=== PATIENT | male | born 1955 | race Caucasian/White ===

== ENCOUNTER → 2021-02-08 13:09 | Outpatient (BNVA) | payer OTHER, SELFPAY | PROVIDERS: PCP Internal Medicine; Visit Provider Urology ==

== ENCOUNTER → 2022-04-04 13:05 | Outpatient (BNVA) | payer MEDICARE, SELFPAY | PROVIDERS: PCP Internal Medicine; Visit Provider Urology | DX: N40.0 Benign prostatic hyperplasia without lower urinary tract symptoms (principal); R97.20 Elevated prostate specific antigen [PSA] | CPT/HCPCS: 51798; 99212 ==

== ENCOUNTER → 2022-08-06 12:46 | Outpatient (BNVA) | payer MEDICARE, SELFPAY | PROVIDERS: PCP Internal Medicine; Visit Provider Urology | DX: N40.0 Benign prostatic hyperplasia without lower urinary tract symptoms (principal); R97.20 Elevated prostate specific antigen [PSA] | CPT/HCPCS: 99212 ==

== ENCOUNTER → 2023-02-26 08:46 | Outpatient (BNVA) | payer MEDICARE, SELFPAY | PROVIDERS: Visit Provider Urology | DX: N40.0 Benign prostatic hyperplasia without lower urinary tract symptoms (principal); R97.20 Elevated prostate specific antigen [PSA]; R35.1 Nocturia; R39.12 Poor urinary stream; R35.0 Frequency of micturition | CPT/HCPCS: 51798; 99212 ==

== ENCOUNTER 2023-10-29 10:50 | Outpatient (AMB) | payer MEDICARE, SELFPAY ==
--- NOTE | 2023-10-29 10:54 | A.OFFVIS_ITS ---
Intake Intake Visit Reasons: 6M PVR/PSA(set)(Confirmed) Intake Note: Patient presents today for a follow-up Meds- Finasteride, Allergies to Antibiotic- No Known Allergies Blood Thinner- None Post Void Residual: 33ml Hot [place]ale Man Required: No Allergies No Known Allergies Allergy (Verified 10/29/23 11:01) Medication List - Last Reconciled 10/29/23 by Antwan Elmore MD allopurinol 100 mg PO DAILY finasteride 5 mg PO DAILY 90 days lisinopril 20 mg PO DAILY propranolol ER 120 mg PO DAILY rosuvastatin 20 mg PO BEDTIME HPI HPI Comments History of Present Illness Details Rosendo Glass is a very pleasant male. He is a patient of Dr. Henderson. He is seen for the following urologic conditions. - BPH - elevated PSA Current PSA 1.6 Minimal PVR Discussed moving to finasteride every other day He is happy with his current symptom control 12 month follow-up Prostate/Bladder: Significant PSA drop with finasteride LAURA 2+ prostate Benign prostatic hyperplasia (BPH) was diagnosed years ago. Current symptoms include nocturia, weak flow, urinary frequency. Severity of the symptoms that is mild. Aggravating factors include alcohol, caffeine intake. Current medication(s) include finasteride. Recent labs included a PSA (prostate-specific antigen) November 2012 3.1, July 2014 3.2, January 2015 2.7, November 2015 4.4 free PSA 27%. December 2016 3.3, 07/17 3.1, 08/17 4.0, 08/18 4.6, 02/17 1.4 (on finasteride), 02/18 3.5, 03/21 4.5, 07/22 2.5, 09/23 1.6 [facility] Medical History Renal sclerosis Hyperlipidemia HTN (hypertension) Elevated PSA Weak urinary stream BPH (benign prostatic hyperplasia) Surgical History History of surgery Social History Patient Tobacco Use Status: Former Tobacco user Review of Systems Const Denies chills and Denies fever(s) Card Reports no additional complaints and Denies syncope Resp Denies cough GI Denies abdominal pain and Denies heartburn Reports as per HPI and Denies change in libido Neuro Denies syncope Psych Denies change in libido Endo Denies change in libido Physical Exam Const General: cooperative, healthy appearing, comfortable and no acute distress Orientation/consciousness: patient oriented x3 HEENT Face and sinus: Yes normal facial exam Mouth: moist mucous membranes Neck Neck: Yes normal visual inspection, Yes full ROM and Yes trachea midline Chest Chest palpation & inspection: normal inspection of the chest Resp Effort & Inspection: normal respiratory effort, able to speak in complete sentences and no respiratory distress GI Inspection: Yes normal to inspection Back/Spine/Pelvis Cervical Spine: normal cervical lordosis Thoracic/Lumbar Spine: thoracic and lumbar spine normal to inspection Skin General skin exam: no rashes or lesions noted Neuro General: patient oriented x3, gait normal, tone normal and moves all extremities Extrem General: Yes normal to inspection and Yes capillary refill normal Office Procedures Post Void Residual Post Residual Void Post Void Residual (PVR): [id number] Void Residual by ultrasound Assessment & Plan Assessment & Plan (1) BPH (benign prostatic hyperplasia): Code(s): N40.0 - Benign prostatic hyperplasia without lower urinary tract symptoms (2) Elevated PSA: Code(s): R97.20 - Elevated prostate specific antigen [PSA] Plan Twelve month follow-up PSA Orders: Orders AMB Post Void Residual by ultrasound Today R33.9 - Retention of urine, unspecified Prostate Specific Antigen 364 Days N40.0 - Benign prostatic hyperplasia without lower urinary tract symptoms Patient Instructions: Imaging studies, laboratory and physical exam results were discussed and reviewed in detail. No major barriers to patient understanding were identified. An opportunity to ask questions regarding the treatment plan was provided. All questions were answered. The patient expressed understanding and agreement with the above treatment plan. The patient is aware they should contact our office by phone for worsening of their current condition or the appearance of new urologic symptoms. Compliance is encouraged with any medications and followup testing that is ordered. It is a privilege to participate in the urologic care of your patient. If you have any questions or concerns regarding treatment for the above conditions, or other urologic issues, please do not hesitate to contact me. The office telephone contact is [phone]. This note is constructed using voice recognition software. While every effort has been made to ensure accuracy brine room laborer errors may have been included. Yours sincerely, Dr Antwan Elmore MD, [facility] - Urology Providers of Expert, Compassionate Care for the Genitourinary System Coding Level of Care Code Est Pt Level 3 (21098) Diagnoses BPH (benign prostatic hyperplasia) N40.0 Elevated PSA R97.20 CPT Codes Post Residual Void - PVR CPT Code: 41837-Ierz Void Residual by ultrasound ([id number])
== END 2023-10-29 11:21 | disposition home or self-care (01) ==
PROVIDERS: PCP Internal Medicine; Visit Provider Urology
DX: N40.0 Benign prostatic hyperplasia without lower urinary tract symptoms (principal); R97.20 Elevated prostate specific antigen [PSA]
CPT/HCPCS: 99213

== ENCOUNTER → 2023-10-29 10:50 | Outpatient (BNVA) | payer MEDICARE, SELFPAY | PROVIDERS: PCP Internal Medicine; Visit Provider Urology | DX: N40.0 Benign prostatic hyperplasia without lower urinary tract symptoms (principal); R97.20 Elevated prostate specific antigen [PSA] | CPT/HCPCS: 51798; 99212 ==

== ENCOUNTER → 2024-10-28 08:38 | Outpatient (BNVA) | payer MEDICARE, SELFPAY | PROVIDERS: PCP Internal Medicine; Visit Provider Urology | DX: R97.20 Elevated prostate specific antigen [PSA] (principal); N40.0 Benign prostatic hyperplasia without lower urinary tract symptoms | CPT/HCPCS: 51798; 99212 ==

== ENCOUNTER 2024-10-28 08:40 | Outpatient (AMB) | payer MEDICARE, SELFPAY ==
--- NOTE | 2024-10-28 08:40 | MHC.OFFVIS ---
Intake Visit Reasons: 1Y PSA/PVR(pt will bring results) Intake Note: Pt presents to the office today for a 1 year follow up PSA/PVR PVR:30ml Urology meds:Finasteride Allergies:None Allergies No Known Allergies Allergy (Verified 10/28/24 08:40) HPI Comments Details: Rosendo Glass is a very pleasant male. He is a patient of Dr. Henderson. He is seen for the following urologic conditions. - BPH - elevated PSA Yearly follow-up Has PSA result from primary care 7.4 Minimal PVR Finasteride every other day LAURA large prostate no defined nodule, some degree of firmness right base Repeat PSA in 2 months Discussed prostate biopsy Urinary Symptoms Review - Lower urinary tract symptoms managed with finasteride every other day. - History of stable PSA level at 1.6, recently noted elevation to 7.7. - Factors potentially affecting PSA levels include recent sexual activity, bike riding, and coffee consumption. Prostate/Bladder: Significant PSA drop with finasteride LAURA 2+ prostate Benign prostatic hyperplasia (BPH) was diagnosed years ago. Current symptoms include nocturia, weak flow, urinary frequency. Severity of the symptoms that is mild. Aggravating factors include alcohol, caffeine intake. Current medication(s) include finasteride. Recent labs included a PSA (prostate-specific antigen) November 2012 3.1, July 2014 3.2, January 2015 2.7, November 2015 4.4 free PSA 27%. December 2016 3.3, 07/17 3.1, 08/17 4.0, 08/18 4.6, 02/17 1.4 (on finasteride), 02/18 3.5, 03/21 4.5, 07/22 2.5, 09/23 1.6 [facility] Medical History Renal sclerosis Hyperlipidemia HTN (hypertension) Elevated PSA Weak urinary stream BPH (benign prostatic hyperplasia) Surgical History History of surgery Social History Patient Tobacco Use Status: Former Tobacco user Review of Systems Const Denies chills and Denies fever(s) Card Reports no additional complaints and Denies syncope Resp Denies cough GI Denies abdominal pain and Denies heartburn Reports as per HPI and Denies change in libido Neuro Denies syncope Psych Denies change in libido Endo Denies change in libido Physical Exam Const General: cooperative, healthy appearing, comfortable and no acute distress Orientation/consciousness: patient oriented x3 HEENT Face and sinus: Yes normal facial exam Mouth: moist mucous membranes Neck Neck: Yes normal visual inspection, Yes full ROM and Yes trachea midline Chest Chest palpation & inspection: normal inspection of the chest Resp Effort & Inspection: normal respiratory effort, able to speak in complete sentences and no respiratory distress GI Inspection: Yes normal to inspection Rectal Exam - Male: Yes normal sphincter tone and Yes prostate normal Male General Exam: Yes normal external exam Penis: normal penis and circumcised Meatus: meatus normal Scrotum: scrotum normal Testes: Testes normal Back/Spine/Pelvis Cervical Spine: normal cervical lordosis Thoracic/Lumbar Spine: thoracic and lumbar spine normal to inspection Skin General skin exam: no rashes or lesions noted Neuro General: patient oriented x3, gait normal, tone normal and moves all extremities Extrem General: Yes normal to inspection and Yes capillary refill normal Office Procedures Post Void Residual Post Residual Void Post Void Residual (PVR): 30 [id number] Void Residual by ultrasound Assessment & Plan Assessment & Plan (1) BPH (benign prostatic hyperplasia): Code(s): N40.0 - Benign prostatic hyperplasia without lower urinary tract symptoms Category: Medical (2) Elevated PSA: Code(s): R97.20 - Elevated prostate specific antigen [PSA] Category: Medical Plan Plan Repeat the PSA test in two months. Consider MRI of the prostate if PSA remains elevated, contingent on insurance approval. Monitor benign prostatic hyperplasia symptoms continued on finasteride every other day. Discussion Notes I explained the potential causes of the PSA elevation, highlighting factors such as recent sexual activity, exercise, and potential prostatitis. I advised repeating the PSA test in two months to confirm the findings. Additionally, I discussed the possibility of performing an MRI or biopsy depending on the outcome of the subsequent PSA levels and insurance requirements. The patient understands and agrees with the proposed plan. Patient Instructions - Continue taking finasteride every other day as prescribed. - Avoid activities that can potentially elevate PSA levels prior to the next test. - Schedule a repeat PSA test in two months. - Follow up for review of the PSA results after retesting. - Report any new or worsening symptoms immediately. Orders: Orders AMB Post Void Residual by ultrasound Today N40.0 - Benign prostatic hyperplasia without lower urinary tract symptoms Patient Instructions: This note is constructed using voice recognition software. While every effort has been made to ensure accuracy cash applications manager errors may have been included. Imaging studies, laboratory and physical exam results were discussed and reviewed in detail. No major barriers to patient understanding were identified. An opportunity to ask questions regarding the treatment plan was provided. All questions were answered. The patient expressed understanding and agreement with the above treatment plan. The patient is aware they should contact our office by phone for worsening of their current condition or the appearance of new urologic symptoms. Compliance is encouraged with any medications and followup testing that is ordered. It is a privilege to participate in the urologic care of your patient. If you have any questions or concerns regarding treatment for the above conditions, or other urologic issues, please do not hesitate to contact me. The office telephone contact is [phone]. Sincerely, Dr Antwan Elmore MD, [facility] - Urology Compassionate Specialist Care for the Genitourinary System Coding Level of Care Code Est Pt Level 4 (54153) Diagnoses BPH (benign prostatic hyperplasia) N40.0 Elevated PSA R97.20 CPT Codes Post Residual Void - PVR CPT Code: 18391-Qgql Void Residual by ultrasound ([id number])
--- OUTSIDE RECORDS SUMMARY | 2024-10-28 08:55 | XMS_ITS ---
Author Organization [facility] Address [address] [place] [address] Care Team Providers Care Dredging Inspector Name Role Phone HENDERSONINESSA KHAN Primary Care Provider Rajani Varma Unavailable [phone] ALLERGIES No Known Allergies REASON FOR VISIT Pt here for routine follow up, pt states he has no concerns. MEDICATIONS Medication SIG (Take, Route, Frequency, Duration) Notes Start Date End Date Status Lisinopril 20 MG 1 tablet Orally Once a day for 90 days Active Fish Oil 1000 MG 1 capsule Orally Onc e a day for 30 day(s) Active Aspir-81 81 MG 1 tablet Orally Once a day for 30 day(s) Active Finasteride 5 MG 1 tablet Orally ever y other day Active Allopurinol 100 MG TAKE 1 TABLET DAILY for 90 Active Propranolol HCl ER 120 MG TAKE 1 CAPSULE ONCE DAILY for 90 Active Rosuvastatin Calcium 20 MG TAKE 1 TABLET ONCE DAILY for 90 Active SOCIAL HISTORY Tobacco Use: Social History Observation Description Date Details (start date - stop date) Current Smoker NA - NA Sex Assigned At : Social History Observation Description Sex Assigned At Unknown Tobacco Use/Smoking Question Answer Notes Are you a current smoker Section Notes: Weekend cigars. No alcohol. No rec drug use. VITAL SIGNS Blood pressure systolic 122 mm Hg 08/09/20 24 Blood pressure diastolic 76 mm Hg 024 Heart Rate 60 /min 08/09/2024 Height 69 in 08/09/2024 Weight 191 lbs 08/09/2024 BMI 28.2 kg/m2 08/09/2024 Oximetry 95 % 08/09/2024 Encounters Encounter Location Date Provider Diagnosis [address] [address] 08/09/2024Cherelle Varma Essential (primary) hypertension I10 ; Hyperlipidemia, unspecified hyperlipidemia type E78.5 ; Stage 3a chronic kidney disease (CKD) N18.31 ; Former smoker Z87.891 and Benign prostatic hyperplasia without lower urinary tract symptoms N40.0 ASSESSMENTS Encounter Date Diagnosis Assessment Notes Treatment Notes Treatment Clinical Notes Section Notes 08/09/2024 Essential (primary) hypertension (ICD-10 - I10) #Hypertension. Blood pressure currently well-controlled. Continue current regimen. Continue to work on healthy diet and regular exercise. #Hyperlipidemia. Has been well-controlled we will recheck labs. Follow up in 3 months, sooner with any concerns. Continue to work on healthy diet regular exercise. #CKD 3A. Labs stable will continue to monitor. Discussed avoidance of NSAIDs. Encouraged increased hydration. Recheck labs. #Former smoker. Low-dose CAT scan done in March 2024- normal. Will repeat yearly. Case discussed with collaborating physician William Henderson who reviewed the assessment and plan. Chart, medications, labs, vital signs reviewed. Dictation was accomplished with the use of [employer] voice recognition software, prone to medical misidentifications and grammatical errors. This is unintentional and the practitioner does try to identify and correct these, but some could still be present. Please do not hesitate to contact practitioner for clarification. All questions answered to patients satisfaction. Patient verbalized understanding of diagnosis and treatments explained. To call sooner prior to next visit it any questions/concerns arise. 08/09/2024 Hyperlipidemia, unspecified hyperlipidemia type (ICD-10 - E78.5) #Hypertension. Blood pressure currently well-controlled. Continue current regimen. Continue to work on healthy diet and regular exercise. #Hyperlipidemia. Has been well-controlled we will recheck labs. Follow up in 3 months, sooner with any concerns. Continue to work on healthy diet regular exercise. #CKD 3A. Labs stable will continue to monitor. Discussed avoidance of NSAIDs. Encouraged increased hydration. Recheck labs. #Former smoker. Low-dose CAT scan done in March 2024- normal. Will repeat yearly. Case discussed with collaborating physician William Henderson who reviewed the assessment and plan. Chart, medications, labs, vital signs reviewed. Dictation was accomplished with the use of [employer] voice recognition software, prone to medical misidentifications and grammatical errors. This is unintentional and the practitioner does try to identify and correct these, but some could still be present. Please do not hesitate to contact practitioner for clarification. All questions answered to patients satisfaction. Patient verbalized understanding of diagnosis and treatments explained. To call sooner prior to next visit it any questions/concerns arise. 08/09/2024 Stage 3a chronic kidney disease (CKD) (ICD-10 - N18.31) #Hypertension. Blood pressure currently well-controlled. Continue current regimen. Continue to work on healthy diet and regular exercise. #Hyperlipidemia. Has been well-controlled we will recheck labs. Follow up in 3 months, sooner with any concerns. Continue to work on healthy diet regular exercise. #CKD 3A. Labs stable will continue to monitor. Discussed avoidance of NSAIDs. Encouraged increased hydration. Recheck labs. #Former smoker. Low-dose CAT scan done in March 2024- normal. Will repeat yearly. Case discussed with collaborating physician William Henderson who reviewed the assessment and plan. Chart, medications, labs, vital signs reviewed. Dictation was accomplished with the use of [employer] voice recognition software, prone to medical misidentifications and grammatical errors. This is unintentional and the practitioner does try to identify and correct these, but some could still be present. Please do not hesitate to contact practitioner for clarification. All questions answered to patients satisfaction. Patient verbalized understanding of diagnosis and treatments explained. To call sooner prior to next visit it any questions/concerns arise. 08/09/2024 Former smoker (ICD-10 - Z87.891) #Hypertension. Blood pressure currently well-controlled. Continue current regimen. Continue to work on healthy diet and regular exercise. #Hyperlipidemia. Has been well-controlled we will recheck labs. Follow up in 3 months, sooner with any concerns. Continue to work on healthy diet regular exercise. #CKD 3A. Labs stable will continue to monitor. Discussed avoidance of NSAIDs. Encouraged increased hydration. Recheck labs. #Former smoker. Low-dose CAT scan done in March 2024- normal. Will repeat yearly. Case discussed with collaborating physician William Henderson who reviewed the assessment and plan. Chart, medications, labs, vital signs reviewed. Dictation was accomplished with the use of [employer] voice recognition software, prone to medical misidentifications and grammatical errors. This is unintentional and the practitioner does try to identify and correct these, but some could still be present. Please do not hesitate to contact practitioner for clarification. All questions answered to patients satisfaction. Patient verbalized understanding of diagnosis and treatments explained. To call sooner prior to next visit it any questions/concerns arise. 08/09/2024 Benign prostatic hyperplasia without lower urinary tract symptoms (ICD-10 - N40.0) #Hypertension. Blood pressure currently well-controlled. Continue current regimen. Continue to work on healthy diet and regular exercise. #Hyperlipidemia. Has been well-controlled we will recheck labs. Follow up in 3 months, sooner with any concerns. Continue to work on healthy diet regular exercise. #CKD 3A. Labs stable will continue to monitor. Discussed avoidance of NSAIDs. Encouraged increased hydration. Recheck labs. #Former smoker. Low-dose CAT scan done in March 2024- normal. Will repeat yearly. Case discussed with collaborating physician William Henderson who reviewed the assessment and plan. Chart, medications, labs, vital signs reviewed. Dictation was accomplished with the use of [employer] voice recognition software, prone to medical misidentifications and grammatical errors. This is unintentional and the practitioner does try to identify and correct these, but some could still be present. Please do not hesitate to contact practitioner for clarification. All questions answered to patients satisfaction. Patient verbalized understanding of diagnosis and treatments explained. To call sooner prior to next visit it any questions/concerns arise. PLAN OF TREATMENT Pending Test Test Name Order Date TSH 08/09/2024 LIPID PANEL, STANDARD 08/09/2024 COMPREHENSIVE METABOLIC PANEL 08/09/2024 CBC (INCLUDES DIFF/PLT) 08/09/2024 HEMOGLOBIN A1c 08/09/2024 PSA (FREE AND TOTAL) 08/09/2024 VITAMIN D,25-OH,TOTAL,IA 08/09/2024 Next Appt Details Follow Up: 3 Months, Reason: MM/labs Provider Name:Rajani Varma, 0 02/23/2025 11:00:00 AM, [address] [facility], [facility] [address], [place], [address], Progress Notes * DARCY LANGFORDDOB:1955 (68 yo M)Acc No.[id number]:08/09/2024 Progress Notes Patient:??DARCY LANGFORD Provider:??Rajani Varma PA-C :1955?Age:68 Y?Sex:Elías mendoza Date:08/09/2024 Address:[address] [place] [address], [place], [id number] Pcp:INESSA HENDERSON Subjective: * Chief Complaints: * ?1. Pt here for routine follow up, pt states he has no concerns.. * HPI: ?Constitutional:? Alexander is a 68-year-old male with past medical history significant for hypertension, hyperlipidemia and CKD 3 here today in follow-up. He did have his low dose screening chest CT which was normal in March. Discussed repeat yearly. Denies any chest pain or shortness of breath. Overall feeling well. No specific concerns today. He has been eating a fairly balanced diet. ?Has been following with urology and on finasteride with good improvement in BPH symptoms. * ROS:?All Other Systems:?Review of Systems (ROS)??All others negative except those mentioned in HPI.? * Medical History:??Hyperlipid emia, Hypertension. * Surgical History:??colonosco py 4 years . * Hospitalization/Major Diagno stic Procedure:??hypertension 1978. * Family History:??Father: dec eased.??Mother: , diagnosed with Unspecified essential hypertension.??1 brother(s) , 1 sister(s) . 1 son(s) , 1 daughter(s) . .?? Father of CHF at 95 years old Mom of CKD and CHF 90s. * Social History:?Tobacco Use:??Tobacco Use/Smoking??Are you a??current smoker.?Weekend cigars. No alcohol. No rec drug use. * Medications:??Taking Finaste ride 5 MG Tablet 1 tablet Orally every other day , Taking Aspir-81 81 MG Tablet Delayed Release 1 tablet Orally Once a day , Taking Fish Oil 1000 MG Capsule 1 capsule Orally Once a day , Taking Lisinopril 20 MG Tablet 1 tablet Orally Once a day , Taking Rosuvastatin Calcium 20 MG Tablet TAKE 1 TABLET ONCE DAILY , Taking Propranolol HCl ER 120 MG Capsule Extended Release 24 Hour TAKE 1 CAPSULE ONCE DAILY , Taking Allopurinol 100 MG Tablet TAKE 1 TABLET DAILY , Medication List reviewed and reconciled with the patient * Allergies:??N.K.D.A. Objective: * Vitals:??HR:60/min, BP:122/7 6mm Hg, Wt:191lbs, BMI:28.2Index, Ht: 69 in, Oxygen sat %:95%. * Physical Examination:?General: Well appearing, well nourished, age appropriate in no acute distress. Speaking in full, clear sentences. ?SKIN: Warm, dry intact. No rashes/lesions. ?HEENT: Normocephalic atraumatic. EOM intact. No nystagmus noted. PERRLA. ?LUNGS: Clear to auscultation bilaterally, no wheezes, rales or rhonchi ?CARDIAC: Regular rate and rhythm, no murmurs, rubs or gallops. ?Extremities: Warm and well perfused. No edema noted. ?Neuro: CN II-XI grossly intact. Speaking in full sentences. Hearing intact. Assessment: * Assessment: 1.??Essential (primary) hype rtension - I10 (Primary)??2.??Hyperlipidemia, unspecified hyperlipidemia type - E78.5??3.??Stage 3a chronic kidney disease (CKD) - N18.31??4.??Former smoker - Z87.891??5.??Benign prostatic hyperplasia without lower urinary tract symptoms - N40.0?? #Hypertension. Blood pressur e currently well-controlled. Continue current regimen. Continue to work on healthy diet and regular exercise. #Hyperlipidemia. Has been well-controlled we will recheck labs. Follow up in 3 months, sooner with any concerns. Continue to work on healthy diet regular exercise. #CKD 3A. Labs stable will continue to monitor. Discussed avoidance of NSAIDs. Encouraged increased hydration. Recheck labs. #Former smoker. Low-dose CAT scan done in March 2024- normal. Will repeat yearly. Case discussed with collaborating physician William Henderson who reviewed the assessment and plan. Chart, medications, labs, vital signs reviewed. Dictation was accomplished with the use of [employer] voice recognition software, prone to medical misidentifications and grammatical errors. This is unintentional and the practitioner does try to identify and correct these, but some could still be present. Please do not hesitate to contact practitioner for clarification. All questions answered to patients satisfaction. Patient verbalized understanding of diagnosis and treatments explained. To call sooner prior to next visit it any questions/concerns arise. Plan: * Treatment: 2.??Hyperlipidemia, unspecif ied hyperlipidemia type?LAB: TSH ?LAB: LIPID PANEL, STANDARD ?LAB: COMPREHENSIVE METABOLIC PANEL ?LAB: CBC (INCLUDES DIFF/PLT) ?LAB: HEMOGLOBIN A1c ?LAB: PSA (FREE AND TOTAL) ?LAB: VITAMIN D,25-OH,TOTAL,IA 3.??Stage 3a chronic kidney disease (CKD)?LAB: TSH ?LAB: LIPID PANEL, STANDARD ?LAB: COMPREHENSIVE METABOLIC PANEL ?LAB: CBC (INCLUDES DIFF/PLT) ?LAB: HEMOGLOBIN A1c ?LAB: PSA (FREE AND TOTAL) ?LAB: VITAMIN D,25-OH,TOTAL,IA 4.??Former smoker?LAB: TSH ?LAB: LIPID PANEL, STANDARD ?LAB: COMPREHENSIVE METABOLIC PANEL ?LAB: CBC (INCLUDES DIFF/PLT) ?LAB: HEMOGLOBIN A1c ?LAB: PSA (FREE AND TOTAL) ?LAB: VITAMIN D,25-OH,TOTAL,IA * Follow Up:??3 Months (Reason : MM/labs) * Images: Billing Information: * Visit Code:?? 31303 Office Visit, Est Pt., Level 4. * Procedure Codes:?? Care Plan Details* * Sign off status: Completed true * Provider:??Rajani Varma PA-C Date:??07/31 History and Physical Notes * HPI (History of Present Illness) Category Sub-Category Detail Notes Category Not es Constitutional Alexander is a 68-year-old male with past medical history significant for hypertension, hyperlipidemia and CKD 3 here today in follow-up. He did have his low dose screening chest CT which was normal in March. Discussed repeat yearly. Denies any chest pain or shortness of breath. Overall feeling well. No specific concerns today. He has been eating a fairly balanced diet. Has been following with urology and on finasteride with good improvement in BPH symptoms. Physical Examination Category Sub-Category Detail Notes Section Note s General: Well appearing, well nourished, age appropriate in no acute distress. Speaking in full, clear sentences. SKIN: Warm, dry intact. No rashes/lesions. HEENT: Normocephalic atraumatic. EOM intact. No nystagmus noted. PERRLA. LUNGS: Clear to auscultation bilaterally, no wheezes, rales or rhonchi CARDIAC: Regular rate and rhythm, no murmurs, rubs or gallops. Extremities: Warm and well perfused. No edema noted. Neuro: CN II-XI grossly intact. Speaking in full sentences. Hearing intact.
--- OUTSIDE RECORDS SUMMARY | 2024-10-28 08:55 | XMS_ITS ---
Author Organization [facility] Address [address] [place] [address] Care Team Providers Care Poultry Vaccinator Name Role Phone INESSA CRONEJO Primary Care Provider REASON FOR VISIT CCM Encounters Encounter Location Date Provider Diagnosis [facility] [address] [facility] [address] [place] [address] 08/12/2024 INESSA CORNEJO PLAN OF TREATMENT Next Appt Details Provider Name:Rajani Varma, 0 02/23/2025 11:00:00 AM, [address], [place], [address], Progress Notes * DARCY LANGFORDDOB:1955 (68 yo M)Acc No.[id number]:08/12/2024 Patient:??DARCY LANGFORD :1955?Age:68 Y?Sex:Uma mendoza Address:[address] [place] [address] * true * Date:??
--- OUTSIDE RECORDS SUMMARY | 2024-10-28 08:56 | XMS_ITS ---
Author Organization [facility] Address [address] [place] [address] Care Team Providers Care Mimeographer Name Role Phone CHANTAL ANIALUIS Primary Care Provider [phone] Rajani Varma Unavailable [phone] ALLERGIES No Known Allergies REASON FOR VISIT Pt seen in office for f/u visit. MEDICATIONS Medication SIG (Take, Route, Frequency, Duration) Notes Start Date End Date Status Fish Oil 1000 MG 1 capsule Orally Onc e a day for 30 day(s) Active Allopurinol 100 MG TAKE 1 TABLET DAILY for 90 Active Propranolol HCl ER 120 MG TAKE 1 CAPSULE ONCE DAILY for 90 Active Rosuvastatin Calcium 20 MG TAKE 1 TABLET ONCE DAILY for 90 Active Lisinopril 20 MG 1 tablet Orally Once a day for 90 days Active Aspir-81 81 MG 1 tablet Orally Once a day for 30 day(s) Active Finasteride 5 MG 1 tablet Orally ever y other day Active SOCIAL HISTORY Tobacco Use: Social History Observation Description Date Details (start date - stop date) Current Smoker NA - NA Sex Assigned At : Social History Observation Description Sex Assigned At Unknown Tobacco Use/Smoking Question Answer Notes Are you a current smoker Section Notes: Weekend cigars. No alcohol. No rec drug use. VITAL SIGNS Blood pressure systolic 130 mm Hg 10/26/19 25 Blood pressure diastolic 78 mm Hg 025 Heart Rate 60 /min 10/26/2024 Height 69 in 10/26/2024 Weight 191 lbs 10/26/2024 BMI 28.2 kg/m2 10/26/2024 Oximetry 97 % 10/26/2024 Encounters Encounter Location Date Provider Diagnosis [id number] [address] 10/26/2024 Rajani Varma Stage 3a chronic kid geo disease (CKD) N18.31 ; Essential (primary) hypertension I10 ; Hyperlipidemia, unspecified hyperlipidemia type E78.5 and Benign prostatic hyperplasia without lower urinary tract symptoms N40.0 ASSESSMENTS Encounter Date Diagnosis Assessment Notes Treatment Notes Treatment Clinical Notes Section Notes 10/26/2024 Stage 3a chronic kidney disease (CKD) (ICD-10 - N18.31) #Hypertension. Currently well-controlled on lisinopril 20 mg. Continue healthy diet and regular exercise. Updated labs reviewed with patient. #CKD 3A. Reviewed updated labs which are stable. Discussed importance of hydration. Will continue to monitor closely. Discussed avoidance of NSAIDs. #Hyperlipidemia. Currently well-controlled on statin and fish oil. Discussed healthy diet and increased omega-3's in diet given low HDL. Continue regular exercise. #BPH. Followed by urology. Reviewed updated labs. PSA level elevated on most recent labs. He has an appointment with his urologist on Thursday to discuss. Case discussed with collaborating physician William Henderson who reviewed the assessment and plan. Chart, medications, labs, vital signs reviewed. Dictation was accomplished with the use of [employer] Dot voice recognition software, prone to medical misidentifications and grammatical errors. This is unintentional and the practitioner does try to identify and correct these, but some could still be present. Please do not hesitate to contact practitioner for clarification. All questions answered to patients satisfaction. Patient verbalized understanding of diagnosis and treatments explained. To call sooner prior to next visit it any questions/concerns arise. 10/26/2024 Essential (primary) hypertension (ICD-10 - I10) #Hypertension. Currently well-controlled on lisinopril 20 mg. Continue healthy diet and regular exercise. Updated labs reviewed with patient. #CKD 3A. Reviewed updated labs which are stable. Discussed importance of hydration. Will continue to monitor closely. Discussed avoidance of NSAIDs. #Hyperlipidemia. Currently well-controlled on statin and fish oil. Discussed healthy diet and increased omega-3's in diet given low HDL. Continue regular exercise. #BPH. Followed by urology. Reviewed updated labs. PSA level elevated on most recent labs. He has an appointment with his urologist on Thursday to discuss. Case discussed with collaborating physician William Henderson who reviewed the assessment and plan. Chart, medications, labs, vital signs reviewed. Dictation was accomplished with the use of Dragon voice recognition software, prone to medical misidentifications and grammatical errors. This is unintentional and the practitioner does try to identify and correct these, but some could still be present. Please do not hesitate to contact practitioner for clarification. All questions answered to patients satisfaction. Patient verbalized understanding of diagnosis and treatments explained. To call sooner prior to next visit it any questions/concerns arise. 10/26/2024 Hyperlipidemia, unspecified hyperlipidemia type (ICD-10 - E78.5) #Hypertension. Currently well-controlled on lisinopril 20 mg. Continue healthy diet and regular exercise. Updated labs reviewed with patient. #CKD 3A. Reviewed updated labs which are stable. Discussed importance of hydration. Will continue to monitor closely. Discussed avoidance of NSAIDs. #Hyperlipidemia. Currently well-controlled on statin and fish oil. Discussed healthy diet and increased omega-3's in diet given low HDL. Continue regular exercise. #BPH. Followed by urology. Reviewed updated labs. PSA level elevated on most recent labs. He has an appointment with his urologist on Thursday to discuss. Case discussed with collaborating physician William Henderson who reviewed the assessment and plan. Chart, medications, labs, vital signs reviewed. Dictation was accomplished with the use of [employer] voice recognition software, prone to medical misidentifications and grammatical errors. This is unintentional and the practitioner does try to identify and correct these, but some could still be present. Please do not hesitate to contact practitioner for clarification. All questions answered to patients satisfaction. Patient verbalized understanding of diagnosis and treatments explained. To call sooner prior to next visit it any questions/concerns arise. 10/26/2024 Benign prostatic hyperplasia without lower urinary tract symptoms (ICD-10 - N40.0) #Hypertension. Currently well-controlled on lisinopril 20 mg. Continue healthy diet and regular exercise. Updated labs reviewed with patient. #CKD 3A. Reviewed updated labs which are stable. Discussed importance of hydration. Will continue to monitor closely. Discussed avoidance of NSAIDs. #Hyperlipidemia. Currently well-controlled on statin and fish oil. Discussed healthy diet and increased omega-3's in diet given low HDL. Continue regular exercise. #BPH. Followed by urology. Reviewed updated labs. PSA level elevated on most recent labs. He has an appointment with his urologist on Thursday to discuss. Case discussed with collaborating physician William Henderson who reviewed the assessment and plan. Chart, medications, labs, vital signs reviewed. Dictation was accomplished with the use of [employer] Dot voice recognition software, prone to medical misidentifications [...] TREATMENT Pending Test Test Name Order Date LIPID PANEL, STANDARD 10/26/2024 COMPREHENSIVE METABOLIC PANEL 10/26/2024 Next Appt Details Follow Up: 4 Months, Reason: [facility]/labs Provider Name:Rajani Varma, Octavia 02/23/2025 11:00:00 AM, [address] [place] [address], [id number], Progress Notes * AMARA LANGFORDZACKARYDOB:1955 (69 yo M)Acc No.[id number]:10/26/2024 Progress Notes Patient:??DARCY LANGFORD Provider:??Rajani Varma PA-C :1955?Age:69 Y?Sex:Uma le Date:10/26/2024 Address:[address] [place], [place] [id number] Pcp:INESSA HENDERSON Subjective: * Chief Complaints: * ?1. Pt seen in office f or f/u visit.. * HPI: ?Constitutional:? Alexander is a 69-year-old male with past medical history significant for hypertension, hyperlipidemia and CKD 3 here today in follow-up. Denies any chest pain or shortness of breath. Overall feeling well. No specific concerns today. He has been eating a fairly balanced diet. Walking several times a week for exercise. ?[place] labs reviewed with patient. PSA level has increased. He does have an appointment with his urologist on Thursday to discuss. He has been on finasteride for BPH. * ROS:?All Other Systems:?Review of Systems (ROS)??All [...] the patient * Allergies:??N.K.D.A. Objective: * Vitals:??HR:60/min, BP:130/7 8mm Hg, Wt:191lbs, BMI:28.2Index, Ht: 69 in, Oxygen sat %:97%. * Physical Examination:?General: Well appearing, well nourished, [...] Assessment: 1.??Essential (primary) hype rtension - I10 (Primary)??2.??Stage 3a chronic kidney disease (CKD) - N18.31??3.??Hyperlipidemia, unspecified hyperlipidemia type - E78.5??4.??Benign prostatic hyperplasia without lower urinary tract symptoms - N40.0?? #Hypertension. Currently wel l-controlled on lisinopril 20 mg. Continue healthy diet and regular exercise. Updated labs reviewed with patient. #CKD 3A. Reviewed updated labs which are stable. Discussed importance of hydration. Will continue to monitor closely. Discussed avoidance of NSAIDs. #Hyperlipidemia. Currently well-controlled on statin and fish oil. Discussed healthy diet and increased omega-3's in diet given low HDL. Continue regular exercise. #BPH. Followed by urology. Reviewed updated labs. PSA level elevated on most recent labs. He has an appointment with his urologist on Thursday to discuss. Case discussed with collaborating physician William Henderson who reviewed the assessment and plan. Chart, medications, labs, vital signs reviewed. Dictation was accomplished with the use of [employer] voice recognition software, prone to medical misidentifications [...] * Treatment: 2.??Hyperlipidemia, unspecif ied hyperlipidemia type?LAB: LIPID PANEL, STANDARD ?LAB: COMPREHENSIVE METABOLIC PANEL * Follow Up:??4 Months (Reason : MWV/labs) * Images: Billing Information: * Visit Code:?? [id number] Office Visit, Est Pt., Level 4. Modifiers: 25, SA * Procedure Codes:?? Care Plan Details* * Sign off status: Completed true * Provider:??Rajani Varma PA-C Date:??10/02 History and Physical Notes * HPI (History of Present Illness) Category Sub-Category Detail Notes Category Not es Constitutional Alexander is a 69-year-old male with past medical history significant for hypertension, hyperlipidemia and CKD 3 here today in follow-up. Denies any chest pain or shortness of breath. Overall feeling well. No specific concerns today. He has been eating a fairly balanced diet. Walking several times a week for exercise. [place] labs reviewed with patient. PSA level has increased. He does have an appointment with his urologist on Thursday to discuss. He has been on finasteride for BPH. Physical Examination Category Sub-Category Detail Notes Section [...]
--- OUTSIDE RECORDS SUMMARY | 2024-10-28 08:57 | XMS_ITS | Patient Health Record ---
Author Organization [facility] Address [address] [place] [address] Care Team Providers Care Coat Fitter Name Role Phone INESSA HENDERSON Primary Care Provider Rajani Holman Unavailable [phone] ALLERGIES No Known Allergies RESULTS Component Value Reference Range Notes COMPREHENSIVE METABOLIC PANE L Reviewed date:01/26/2024 01:57:53 PM Interpretation: Performing Lab: Notes/Report: Note Original Ordering Provider: RAJANI HOLMAN PA-C [employer], [place] [address] It Associate - Meredith Sherwood MD GLUCOSE 97 70-100 mg/dL Reference range applicable to fasting specimens only BUN 20 5-25 mg/dL CREAT 1.32 0.7-1.3 mg/dL GLOMERULAR FILTRATION RATE 58 >60 This eGFR result was calculated using the CKD-EPI 2020 Creatinine Equation SODIUM 143 135-145 mEq/L POTASSIUM 4.0 3.5-5.5 mmol/L CHLORIDE 110 96-110 mmol/L CO2 27 21-32 mmol/L ANION GAP 6 3-11 CALCIUM 9.1 8.5-10.5 mg/dL TOTAL PROTEIN 6.5 6.0-8.0 G/dL ALBUMIN 3.8 3.2-5.0 G/dL BILI,TOTAL 0.7 0.0-1.4 mg/dL SGOT 20 10-42 U/L SGPT 33 10-60 U/L ALK PHOS 62 42-121 U/L Note Original Ordering Provider: RAJANI HOLMAN PA-C [employer], a member of [address] [address] It Associate - Meredith Sherwood MD CBC WITH AUTO DIFFERENTIAL Reviewed date:10/14/2024 10:13:37 AM Interpretation: Performing Lab: Notes/Report: WBC 7.3 4.8-10.8 K/mcL RBC 5.50 4.50-5.50 M/mcL Hemoglobin 16.2 13.5-17.5 g/dL Hematocrit 48.9 42.0-54.0 % MCV 88.9 79.0-98.0 FL MCH 29.5 27.0-32.0 pcg MCHC 33.1 32.0-37.0 g/dL RDW 12.8 11.0-15.0 % Platelets 153 130-400 K/mcL MPV 8.9 7.0-11.0 FL NRBC 0.0 <1.0 % NRBC Absolute 0.00 <0.10 K/mcL Neutrophils Relative 54.2 Lymphocytes Relative 26.0 Monocytes Relative 16.6 Eosinophils Relative 2.3 Basophils Relative 0.5 Immature Granulocytes Relative 0.4 Neutrophils Absolute 3.97 1.50-7.00 K/mcL Lymphocytes Absolute 1.91 1.00-5.00 K/mcL Monocytes Absolute 1.22 0.20-1.00 K/mcL Eosinophils Absolute 0.17 0.00-0.50 K/mcL Basophils Absolute 0.04 0.00-0.20 K/mcL Immature Granulocytes Absolute 0.03 0.00-0.03 K/mcL LIPID PANEL WITH REFLEX TO D IRECT LDL Reviewed date:10/14/2024 10:32:30 AM Interpretation: Performing Lab: Notes/Report: Cholesterol 118 0-200 mg/dL Triglycerides 146 0-150 mg/dL HDL 37 >=40 mg/dL LDL Calculated 52 0-100 mg/dL VLDL Cholesterol Mao 29.2 Non HDL Chol. (LDL+VLDL) 81 <145 mg/dL Chol/HDL Ratio 3.2 0.0-4.4 VITAMIN D 25 HYDROXY Reviewed date:10/14/2024 10:31:27 AM Interpretation: Performing Lab: Notes/Report: Vit D, 25-Hydroxy 30.5 30.0-80.0 ng/mL COMPREHENSIVE METABOLIC PANE L Reviewed date:10/14/2024 10:32:08 AM Interpretation: Performing Lab: Notes/Report: Sodium 138 133-145 mmol/L Potassium 3.9 3.5-5.5 mmol/L Chloride 104 96-110 mmol/L CO2 31 21-32 mmol/L Anion Gap 3 3-11 Glucose 85 70-100 mg/dL BUN 26 5-25 mg/dL Creatinine 1.43 0.70-1.30 mg/dL eGFR 53 >=60 mL/min/1.73m2 Calculati on based on the?Chronic Kidney Disease Epidemiology Collaboration (CKD-EPI) equation refit?without adjustment for race. BUN/Creatinine Ratio 18.2 Calcium 9.5 8.5-10.5 mg/dL AST (SGOT) 27 10-42 unit/L ALT (SGPT) 38 10-60 unit/L Alkaline Phosphatase 73 42-121 unit/L Total Protein 6.7 6.0-8.0 g/dL Albumin 3.7 3.2-5.0 g/dL Total Bilirubin 0.9 0.0-1.4 mg/dL HEMOGLOBIN A1C Reviewed date:10/27/2024 04:36:01 PM Interpretation: Performing Lab: Notes/Report: Hemoglobin A1C 5.5 <6.5 % Mean Bld Glu Estim. 111 PROSTATE SPECIFIC ANTIGEN JOSE CRANE Reviewed date:10/27/2024 04:36:19 PM Interpretation: Performing Lab: Notes/Report: The Siemens Advia innRoadaur Chemiluminescent Immunoassay is used. Results obtained with different assay methods or kits cannot be used interchangeably. Results cannot be interpreted as absolute evidence of the presence or absence of malignant disease. PSA 7.70 0.00-4.00 ng/mL REASON FOR REFERRAL No Information MEDICATIONS Medication SIG (Take, Route, Frequency, Duration) [...] Once a day for 90 days Active IMMUNIZATIONS Vaccine Route Administration Date Status Comme nts Flu vaccine no Preserv 3 and > Unknown 06/09/2018 Administered influenza IM Intramuscular 06/25/2021 Administered Influenza, seasonal, injectable, 6-35 months Unknown 06/22/2014 Administered Influenza, seasonal, injectable, preservative free, 6-35 months Unknown 06/07/2015 Administered Influenza, seasonal, injectable, preservative free, 6-35 months Unknown 06/11/2016 Administered Influenza, seasonal, injectable, preservative free, 6-35 months Unknown 06/11/2017 Administered Moderna Covid-19 Vaccine Unknown 10/27/2020 Administere d Moderna Covid-19 Vaccine Unknown 11/24/2020 Administere d Moderna Covid-19 Vaccine Unknown 06/24/2021 Administere d SHINGRIX IM Intramuscular 06/28/2019 Administered SHINGRIX IM Intramuscular 09/30/2019 Administered Tdap IM Intramuscular 06/03/2018 Administered SOCIAL HISTORY Tobacco Use: Social History Observation Description Date Details (start date - stop date) Current Smoker NA - NA Sex Assigned At : Social History Observation Description Sex Assigned At Unknown Tobacco Use/Smoking Question Answer Notes Are you a current smoker Section Notes: Weekend cigars. No alcohol. No rec drug use. Weekend cigars. No alcohol. No rec drug use. Weekend cigars. No alcohol. No rec drug use. Weekend cigars. No alcohol. No rec drug use. PROBLEMS Problem Type ICD Code Onset Dates Problem Status W/U Status Risk SNOMED Code Notes Problem Essential (primary) hypertension (I10) Active confirmed Essential hypertension (61397256) Problem Gout, unspecified (M10.9) Active confirmed Gout (50357873) Problem Chronic kidney disease, stage 3 (moderate) (N18.3) Active confirmed Chronic kidney disease stage 3 (disorder) (981250000) Problem Benign prostatic hyperplasia without lower urinary tract symptoms (N40.0) Active confirmed Benign pros tatic hypertrophy without outflow obstruction (519542403) Problem Hyperlipidemia, unspecified hyperlipidemia type (E78.5) Active confirmed Hyperlipidaemia (01709280) Problem Vitamin D deficiency (E55.9) Active confirmed Vitamin D deficiency (20295058) Problem Accelerated hypertension (I10) Active confirmed Essential hypertension (80067878) Problem Chest wall pain (R07.89) Active confirmed Chest wall pain (417983728) Problem Diabetes mellitus screening (Z13.1) Active confirmed Diabetes m ellitus screening (863592978) Problem Chronic kidney disease, stage 3 unspecified (N18.30) Active confirmed Chronic kidney disease stage 3 (disorder) (320823951) Problem Prostate cancer screening (Z12.5) Active confirmed Screening for malignant neoplasm of prostate (168519309) Problem Screening for diabetes mellitus (Z13.1) Active confirmed Diabetes mellit us screening (691297596) Problem Stage 3a chronic kidney disease (CKD) (N18.31) Active confirmed 090877782 Problem Osteoporosis screening (Z13.820) Active confirmed Screening for osteoporosis (252712770) Problem Elevated lipids (E78.5) Active confirmed Elevated fastin g lipid profile (725948661571) Problem Screening for hypothyroidism (Z13.29) Active confirmed Congenital hypothyroidism screening test (649210183) VITAL SIGNS Heart Rate 60 /min 10/26/2024 Blood pressure diastolic 78 mm Hg 10/26/2024 Oximetry 97 % 10/26/2024 Height 69 in 10/26/2024 Blood pressure systolic 130 mm Hg 10/26/2024 Weight 191 lbs 10/26/2024 BMI 28.2 kg/m2 10/26/2024 Encounters Encounter Location Date Provider Diagnosis [id number] 01/26/2024 Rajani Svrcek Annual physical exam Z00.00 ; Chronic kidney disease, stage 3 unspecified N18.30 ; Rib pain on left side R07.81 and Screening for lung cancer Z12.[address] 03/08/2024 Rajani Svrcek Essential (primary) hypertension I10 ; Hyperlipidemia, unspecified hyperlipidemia type E78.5 ; Stage 3a chronic kidney disease (CKD) N18.31 and Former smoker Z87.891 [address] 08/09/2024 Rajani Svrcek Essential (primary) hypertension I10 ; Hyperlipidemia, unspecified hyperlipidemia type E78.5 ; Stage 3a chronic kidney disease (CKD) N18.31 ; Former smoker Z87.891 and Benign prostatic hyperplasia without lower urinary tract symptoms N40.[address] 10/26/2024 Rajani Svrcek Stage 3a chronic kid geo disease (CKD) N18.31 ; Essential (primary) hypertension I10 ; Hyperlipidemia, unspecified hyperlipidemia type E78.5 and Benign prostatic hyperplasia without lower urinary tract symptoms N40.0 [facility] [address] [place] [address] 10/28/2023 INESSA HENDERSON [facility] [address] [place] [address] 11/19/2023 INESSA HENDERSON [facility] [address] [place] [facility] [place] [address] 01/08/[address] [facility] [address] [place] [address] 08/12/2024 INESSA HENDERSON ASSESSMENTS Encounter Date Diagnosis Assessment Notes Treatment Notes Treatment Clinical Notes Section Notes 01/26/2024 Annual physical exam (ICD-10 - Z00.00) #Annual physical. Up-to-date on immunizations and routine screenings. Will be due for repeat colonoscopy May 2024. Will refer. Continue healthy diet and regular exercise. He is working on healthcare proxy. #CKD 3. Will check updated labs. #Left rib pain. Ongoing for few years left anterior lower rib pain tender to touch worse after long days of yard work etc. He is due for routine low-dose CT which will be scheduled and follow-up pending results. If normal consider bone scan. #Screening for lung cancer. Due for updated low-dose CT February 03, 2024. Will schedule and follow-up pending results. Continues to smoke cigars on the weekends. Patient seen and examined. Comprehensive discussion was done on the following. 1. Nutrition: It is important to follow a healthy diet based on lots of vegetables and legumes and good fat. Avoid processed food and processed carbohydrates. Learn to prepare your own meals. Learn to read labels and avoid high fructose corn syrup, processed chemicals added to increase shelf life and preprepared meals. Avoid fast foods. Learn to eat slowly and plan meals for a week. Try to count calories and be mindful off daily calorie intake. Get into the habit of keeping an eye on your weight by using an appropriate scale. Learn to log exercise and discussed fitness Apps like [employer] which can help keep log off calories taken versus calories burned. Local food should be preferred. Discussed Dirty Dozen Versus Clean Fifteen. Discussed healthy supplements like fish oil, Tumeric, Curcumin, Melatonin, Resveratrol, Probiotics, Vitamin-D, Alpha-Lipoic acid, Vitamin-D and coconut oil. 2. It is important to exercise regularly. Is a good habit to walk at least 30-45 minutes a day. Gentle weightlifting with standard precautions to protect the back. Finding activity like cycling or hiking and get into the habit of engaging in it. Stretching before and after the exercises important. It is also important to contact me if there are any problems like shortness of breath, chest pain, back pain and joint or muscle pain associated with the exercise. 3. Discussed age appropriate screening guidelines. Colonoscopy needs to start at age 50 with stool for occult blood as appropriate. There is a new test that can test for genetic abnormalities in the stool sample. This would not replace a colonoscopy but could be used as a screening tool for patients who do not want a colonoscopy. We discussed the importance of early detection of colon cancer. 4. Discussed current PSA screening. PSA screening can be done in most patients between age 50 and 65. However early detection of prostate cancer needs to carefully be balanced with complications with treatment. These include incontinence, impotence etc. Each patient should decide if they would like to have this test. 5. Discussed safe driving and no use of smart phone while driving 6. Age-appropriate immunizations were discussed. A tetanus booster is needed every 10 years. Flu vaccine is recommended every year just before the start of the flu season. Shingles vaccine is recommended after age 50 but not all insurances cover it. Pneumonia vaccine is given after age 65 unless there are certain comorbidities for which it is started earlier. 7. Diagnostic labs were discussed. These could include CBC CMP and lipids with fasting blood glucose and insulin levels. Vitamin D and hemoglobin A1c testing might be appropriate. Case discussed with collaborating physician William Henderson who reviewed the assessment and plan. Chart, medications, labs, vital signs reviewed. Dictation was accomplished with the use of [employer] voice recognition software, prone to medical misidentifications and grammatical errors. This is unintentional and the practitioner does try to identify and correct these, but some could still be present. Please do not hesitate to contact practitioner for clarification. All questions answered to patients satisfaction. Patient verbalized understanding of diagnosis and treatments explained. To call sooner prior to next visit it any questions/concerns arise. 01/26/2024 Chronic kidney disease, stage 3 unspecified (ICD-10 - N18.30) #Annual physical. Up-to-date on immunizations and routine screenings. Will be due for repeat colonoscopy May 2024. Will refer. Continue healthy diet and regular exercise. He is working on healthcare proxy. #CKD 3. Will check updated labs. #Left rib pain. Ongoing for few years left anterior lower rib pain tender to touch worse after long days of yard work etc. He is due for routine low-dose CT which will be scheduled and follow-up pending results. If normal consider bone scan. #Screening for lung cancer. Due for updated low-dose CT February 03, 2024. Will schedule and follow-up pending results. Continues to smoke cigars on the weekends. Patient seen and examined. Comprehensive discussion was done on the following. 1. Nutrition: It is important to follow a healthy diet based on lots of vegetables and legumes and good fat. Avoid processed food and processed carbohydrates. Learn to prepare your own meals. Learn to read labels and avoid high fructose corn syrup, processed chemicals added to increase shelf life and preprepared meals. Avoid fast foods. Learn to eat slowly and plan meals for a week. Try to count calories and be mindful off daily calorie intake. Get into the habit of keeping an eye on your weight by using an appropriate scale. Learn to log exercise and discussed fitness Apps like [employer] which can help keep log off calories taken versus calories burned. Local food should be preferred. Discussed Dirty Dozen Versus Clean Fifteen. Discussed healthy supplements like fish oil, Tumeric, Curcumin, Melatonin, Resveratrol, Probiotics, Vitamin-D, Alpha-Lipoic acid, Vitamin-D and coconut oil. 2. It is important to exercise regularly. Is a good habit to walk at least 30-45 minutes a day. Gentle weightlifting with standard precautions to protect the back. Finding activity like cycling or hiking and get into the habit of engaging in it. Stretching before and after the exercises important. It is also important to contact me if there are any problems like shortness of breath, chest pain, back pain and joint or muscle pain associated with the exercise. 3. Discussed age appropriate screening guidelines. Colonoscopy needs to start at age 50 with stool for occult blood as appropriate. There is a new test that can test for genetic abnormalities in the stool sample. This would not replace a colonoscopy but could be used as a screening tool for patients who do not want a colonoscopy. We discussed the importance of early detection of colon cancer. 4. Discussed current PSA screening. PSA screening can be done in most patients between age 50 and 65. However early detection of prostate cancer needs to carefully be balanced with complications with treatment. These include incontinence, impotence etc. Each patient should decide if they would like to have this test. 5. Discussed safe driving and no use of smart phone while driving 6. Age-appropriate immunizations were discussed. A tetanus booster is needed every 10 years. Flu vaccine is recommended every year just before the start of the flu season. Shingles vaccine is recommended after age 50 but not all insurances cover it. Pneumonia vaccine is given after age 65 unless there are certain comorbidities for which it is started earlier. 7. Diagnostic labs were discussed. These could include CBC CMP and lipids with fasting blood glucose and insulin levels. Vitamin D and hemoglobin A1c testing might be appropriate. Case discussed with collaborating physician William Henderson who reviewed the assessment and plan. Chart, medications, labs, vital signs reviewed. Dictation was accomplished with the use of [employer] voice recognition software, prone to medical misidentifications and grammatical errors. This is unintentional and the practitioner does try to identify and correct these, but some could still be present. Please do not hesitate to contact practitioner for clarification. All questions answered to patients satisfaction. Patient verbalized understanding of diagnosis and treatments explained. To call sooner prior to next visit it any questions/concerns arise. 03/08/2024 Essential (primary) hypertension (ICD-10 - I10) #Hypertension. Blood pressure currently well-controlled. Continue current regimen. Continue to work on healthy diet and regular exercise. #Hyperlipidemia. Has been well-controlled we will recheck labs in 4 to 6 months. Continue to work on healthy diet regular exercise. #CKD 3A. Labs stable will continue to monitor. Discussed avoidance of NSAIDs. Encouraged increased hydration. Recheck labs in 4 to 6 months. #Former smoker. Due for low-dose CAT scan will refer again today. Advised patient to let me know if he has not been scheduled in 1 week. Follow-up pending results. Case discussed with collaborating physician William Henderson who reviewed the assessment and plan. Chart, medications, labs, vital signs reviewed. Dictation was accomplished with the use of [employer] voice recognition software, prone to medical misidentifications and grammatical errors. This is unintentional and the practitioner does try to identify and correct these, but some could still be present. Please do not hesitate to contact practitioner for clarification. All questions answered to patients satisfaction. Patient verbalized understanding of diagnosis and treatments explained. To call sooner prior to next visit it any questions/concerns arise. 03/08/2024 Hyperlipidemia, unspecified hyperlipidemia type (ICD-10 - E78.5) #Hypertension. Blood pressure currently well-controlled. Continue current regimen. Continue to work on healthy diet and regular exercise. #Hyperlipidemia. Has been well-controlled we will recheck labs in 4 to 6 months. Continue to work on healthy diet regular exercise. #CKD 3A. Labs stable will continue to monitor. Discussed avoidance of NSAIDs. Encouraged increased hydration. Recheck labs in 4 to 6 months. #Former smoker. Due for low-dose CAT scan will refer again today. Advised patient to let me know if he has not been scheduled in 1 week. Follow-up pending results. Case discussed with collaborating physician William Henderson who reviewed the assessment and plan. Chart, medications, labs, vital signs reviewed. Dictation was accomplished with the use of [employer] voice recognition software, prone to medical misidentifications [...] next visit it any questions/concerns arise. 08/09/2024 Essential (primary) hypertension (ICD-10 - I10) [...] Dictation was accomplished with the use of [employer] voice recognition software, prone to medical misidentifications [...] Dictation was accomplished with the use of [employer] voice recognition software, prone to medical misidentifications [...] Dictation was accomplished with the use of [employer] voice recognition software, prone to medical misidentifications [...] next visit it any questions/concerns arise. 10/26/2024 Stage 3a chronic kidney disease (CKD) [...] Dictation was accomplished with the use of [employer] voice recognition software, prone to medical misidentifications [...] Dictation was accomplished with the use of [employer] voice recognition software, prone to medical misidentifications [...] Dictation was accomplished with the use of [employer] voice recognition software, prone to medical misidentifications and grammatical errors. This is unintentional and the practitioner does try to identify and correct these, but some could still be present. Please do not hesitate to contact practitioner for clarification. All questions answered to patients satisfaction. Patient verbalized understanding of diagnosis and treatments explained. To call sooner prior to next visit it any questions/concerns arise. 03/08/2024 Stage 3a chronic kidney disease (CKD) (ICD-10 - N18.31) #Hypertension. Blood pressure currently well-controlled. Continue current regimen. Continue to work on healthy diet and regular exercise. #Hyperlipidemia. Has been well-controlled we will recheck labs in 4 to 6 months. Continue to work on healthy diet regular exercise. #CKD 3A. Labs stable will continue to monitor. Discussed avoidance of NSAIDs. Encouraged increased hydration. Recheck labs in 4 to 6 months. #Former smoker. Due for low-dose CAT scan will refer again today. Advised patient to let me know if he has not been scheduled in 1 week. Follow-up pending results. Case discussed with collaborating physician William Henderson who reviewed the assessment and plan. Chart, medications, labs, vital signs reviewed. Dictation was accomplished with the use of [employer] voice recognition software, prone to medical misidentifications and grammatical errors. This is unintentional and the practitioner does try to identify and correct these, but some could still be present. Please do not hesitate to contact practitioner for clarification. All questions answered to patients satisfaction. Patient verbalized understanding of diagnosis and treatments explained. To call sooner prior to next visit it any questions/concerns arise. 01/26/2024 Rib pain on left side (ICD-10 - R07.81) #Annual physical. Up-to-date on immunizations and routine screenings. Will be due for repeat colonoscopy May 2024. Will refer. Continue healthy diet and regular exercise. He is working on healthcare proxy. #CKD 3. Will check updated labs. #Left rib pain. Ongoing for few years left anterior lower rib pain tender to touch worse after long days of yard work etc. He is due for routine low-dose CT which will be scheduled and follow-up pending results. If normal consider bone scan. #Screening for lung cancer. Due for updated low-dose CT February 03, 2024. Will schedule and follow-up pending results. Continues to smoke cigars on the weekends. Patient seen and examined. Comprehensive discussion was done on the following. 1. Nutrition: It is important to follow a healthy diet based on lots of vegetables and legumes and good fat. Avoid processed food and processed carbohydrates. Learn to prepare your own meals. Learn to read labels and avoid high fructose corn syrup, processed chemicals added to increase shelf life and preprepared meals. Avoid fast foods. Learn to eat slowly and plan meals for a week. Try to count calories and be mindful off daily calorie intake. Get into the habit of keeping an eye on your weight by using an appropriate scale. Learn to log exercise and discussed fitness Apps like [employer] which can help keep log off calories taken versus calories burned. Local food should be preferred. Discussed Dirty Dozen Versus Clean Fifteen. Discussed healthy supplements like fish oil, Tumeric, Curcumin, Melatonin, Resveratrol, Probiotics, Vitamin-D, Alpha-Lipoic acid, Vitamin-D and coconut oil. 2. It is important to exercise regularly. Is a good habit to walk at least 30-45 minutes a day. Gentle weightlifting with standard precautions to protect the back. Finding activity like cycling or hiking and get into the habit of engaging in it. Stretching before and after the exercises important. It is also important to contact me if there are any problems like shortness of breath, chest pain, back pain and joint or muscle pain associated with the exercise. 3. Discussed age appropriate screening guidelines. Colonoscopy needs to start at age 50 with stool for occult blood as appropriate. There is a new test that can test for genetic abnormalities in the stool sample. This would not replace a colonoscopy but could be used as a screening tool for patients who do not want a colonoscopy. We discussed the importance of early detection of colon cancer. 4. Discussed current PSA screening. PSA screening can be done in most patients between age 50 and 65. However early detection of prostate cancer needs to carefully be balanced with complications with treatment. These include incontinence, impotence etc. Each patient should decide if they would like to have this test. 5. Discussed safe driving and no use of smart phone while driving 6. Age-appropriate immunizations were discussed. A tetanus booster is needed every 10 years. Flu vaccine is recommended every year just before the start of the flu season. Shingles vaccine is recommended after age 50 but not all insurances cover it. Pneumonia vaccine is given after age 65 unless there are certain comorbidities for which it is started earlier. 7. Diagnostic labs were discussed. These could include CBC CMP and lipids with fasting blood glucose and insulin levels. Vitamin D and hemoglobin A1c testing might be appropriate. Case discussed with collaborating physician William Henderson who reviewed the assessment and plan. Chart, medications, labs, vital signs reviewed. Dictation was accomplished with the use of [employer] voice recognition software, prone to medical misidentifications and grammatical errors. This is unintentional and the practitioner does try to identify and correct these, but some could still be present. Please do not hesitate to contact practitioner for clarification. All questions answered to patients satisfaction. Patient verbalized understanding of diagnosis and treatments explained. To call sooner prior to next visit it any questions/concerns arise. 01/26/2024 Screening for lung cancer (ICD-10 - Z12.2) #Annual physical. Up-to-date on immunizations and routine screenings. Will be due for repeat colonoscopy May 2024. Will refer. Continue healthy diet and regular exercise. He is working on healthcare proxy. #CKD 3. Will check updated labs. #Left rib pain. Ongoing for few years left anterior lower rib pain tender to touch worse after long days of yard work etc. He is due for routine low-dose CT which will be scheduled and follow-up pending results. If normal consider bone scan. #Screening for lung cancer. Due for updated low-dose CT February 03, 2024. Will schedule and follow-up pending results. Continues to smoke cigars on the weekends. Patient seen and examined. Comprehensive discussion was done on the following. 1. Nutrition: It is important to follow a healthy diet based on lots of vegetables and legumes and good fat. Avoid processed food and processed carbohydrates. Learn to prepare your own meals. Learn to read labels and avoid high fructose corn syrup, processed chemicals added to increase shelf life and preprepared meals. Avoid fast foods. Learn to eat slowly and plan meals for a week. Try to count calories and be mindful off daily calorie intake. Get into the habit of keeping an eye on your weight by using an appropriate scale. Learn to log exercise and discussed fitness Apps like [employer] which can help keep log off calories taken versus calories burned. Local food should be preferred. Discussed Dirty Dozen Versus Clean Fifteen. Discussed healthy supplements like fish oil, Tumeric, Curcumin, Melatonin, Resveratrol, Probiotics, Vitamin-D, Alpha-Lipoic acid, Vitamin-D and coconut oil. 2. It is important to exercise regularly. Is a good habit to walk at least 30-45 minutes a day. Gentle weightlifting with standard precautions to protect the back. Finding activity like cycling or hiking and get into the habit of engaging in it. Stretching before and after the exercises important. It is also important to contact me if there are any problems like shortness of breath, chest pain, back pain and joint or muscle pain associated with the exercise. 3. Discussed age appropriate screening guidelines. Colonoscopy needs to start at age 50 with stool for occult blood as appropriate. There is a new test that can test for genetic abnormalities in the stool sample. This would not replace a colonoscopy but could be used as a screening tool for patients who do not want a colonoscopy. We discussed the importance of early detection of colon cancer. 4. Discussed current PSA screening. PSA screening can be done in most patients between age 50 and 65. However early detection of prostate cancer needs to carefully be balanced with complications with treatment. These include incontinence, impotence etc. Each patient should decide if they would like to have this test. 5. Discussed safe driving and no use of smart phone while driving 6. Age-appropriate immunizations were discussed. A tetanus booster is needed every 10 years. Flu vaccine is recommended every year just before the start of the flu season. Shingles vaccine is recommended after age 50 but not all insurances cover it. Pneumonia vaccine is given after age 65 unless there are certain comorbidities for which it is started earlier. 7. Diagnostic labs were discussed. These could include CBC CMP and lipids with fasting blood glucose and insulin levels. Vitamin D and hemoglobin A1c testing might be appropriate. Case discussed with collaborating physician William Henderson who reviewed the assessment and plan. Chart, medications, labs, vital signs reviewed. Dictation was accomplished with the use of [employer] voice recognition software, prone to medical misidentifications and grammatical errors. This is unintentional and the practitioner does try to identify and correct these, but some could still be present. Please do not hesitate to contact practitioner for clarification. All questions answered to patients satisfaction. Patient verbalized understanding of diagnosis and treatments explained. To call sooner prior to next visit it any questions/concerns arise. 03/08/2024 Former smoker (ICD-10 - Z87.891) #Hypertension. Blood pressure currently well-controlled. Continue current regimen. Continue to work on healthy diet and regular exercise. #Hyperlipidemia. Has been well-controlled we will recheck labs in 4 to 6 months. Continue to work on healthy diet regular exercise. #CKD 3A. Labs stable will continue to monitor. Discussed avoidance of NSAIDs. Encouraged increased hydration. Recheck labs in 4 to 6 months. #Former smoker. Due for low-dose CAT scan will refer again today. Advised patient to let me know if he has not been scheduled in 1 week. Follow-up pending results. Case discussed with collaborating physician William Henderson who reviewed the assessment and plan. Chart, medications, labs, vital signs reviewed. Dictation was accomplished with the use of [employer] voice recognition software, prone to medical misidentifications [...] Dictation was accomplished with the use of [employer] voice recognition software, prone to medical misidentifications [...] Dictation was accomplished with the use of [employer] voice recognition software, prone to medical misidentifications [...] repeat yearly. Case discussed with collaborating physician iWlliam Henderson who reviewed the assessment and plan. Chart, medications, labs, vital signs reviewed. Dictation was accomplished with the use of [employer] voice recognition software, prone to medical misidentifications [...] TREATMENT Pending Test Test Name Order Date Echocardiogram 06/09/2023 Lipid Panel 12/02/2018 Comp. Metabolic Panel (14) 12/02/2018 CBC 12/02/2018 Bone Density 01/21/2023 Ultrasound : Kidneys 06/28/2019 Urinalysis 12/02/2018 EKG 01/21/2023 25OH VITAMIN D 10/09/2021 CBC (COMPLETE BLOOD COUNT) 06/01/2020 CBC (COMPLETE BLOOD COUNT) 10/09/2021 CBC (COMPLETE BLOOD COUNT) 02/01/2018 CBC (COMPLETE BLOOD COUNT) 06/09/2023 CBC (COMPLETE BLOOD COUNT) 09/23/2023 COMPREHENSIVE METABOLIC PANEL 01/26/2024 COMPREHENSIVE METABOLIC PANEL 09/23/2023 COMPREHENSIVE METABOLIC PANEL 03/08/2024 COMPREHENSIVE METABOLIC PANEL 06/09/2023 COMPREHENSIVE METABOLIC PANEL 02/01/2018 COMPREHENSIVE METABOLIC PANEL 06/01/2020 COMPREHENSIVE METABOLIC PANEL 10/09/2021 CRP, HIGH SENSITIVITY 02/01/2018 HEMOGLOBIN A1C 06/01/2020 HEMOGLOBIN A1C 02/01/2018 HEMOGLOBIN A1C 10/09/2021 LIPID PANEL 10/09/2021 LIPID PANEL 09/04/2020 LIPID PANEL 02/01/2018 LIPID PANEL 06/01/2020 LIPID PANEL 06/09/2023 LIPID PANEL 03/08/2024 LIPID PANEL 09/23/2023 PSA, FREE AND TOTAL 02/01/2018 T4, FREE 10/09/2021 TSH 10/09/2021 TSH 08/09/2024 TSH WITH REFLEX TO FT4 02/01/2018 URIC ACID 06/01/2020 URIC ACID 09/04/2020 URINALYSIS W/REFLEX CULTURE 10/09/2021 URINALYSIS, COMPLETE 06/01/2020 URINALYSIS, COMPLETE 02/01/2018 Lipid Panel 06/03/2018 LIPID PANEL, STANDARD 08/09/2024 LIPID PANEL, STANDARD 10/26/2024 LIPID PANEL, STANDARD 01/10/2022 COMPREHENSIVE METABOLIC PANEL 07/21/2022 COMPREHENSIVE METABOLIC PANEL 10/26/2024 COMPREHENSIVE METABOLIC PANEL 08/09/2024 COMPREHENSIVE METABOLIC PANEL 01/10/2022 URIC ACID 01/10/2022 CBC (INCLUDES DIFF/PLT) 01/10/2022 CBC (INCLUDES DIFF/PLT) 08/09/2024 CBC (INCLUDES DIFF/PLT) 07/21/2022 URINALYSIS, COMPLETE 01/10/2022 URINALYSIS, COMPLETE W/REFLEX TO CULTURE 07/21/2022 HEMOGLOBIN A1c 08/09/2024 PSA (FREE AND TOTAL) 08/09/2024 VITAMIN D,25-OH,TOTAL,IA 08/09/2024 COMPLETE URINALYSIS 06/09/2023 CT Low Dose Lung Screening 03/08/2024 Next Appt Details Provider Name:Rajani Holman, 0 02/23/2025 11:00:00 AM, [address] [place] [address], [place], [address], Insurance Providers Payer Name Payer Address Payer Phone Subscriber Number Group Number Insured Name Patient Relationship to Insured Coverage Start Date Coverage End Date Medicare Part B J14 [address] [place] [phone] [id number] DARCY LANGFORD Self - patient is the insured [employer] [address] [place] [address] [phone] [id number] DARCY LANGFORD Self - patient is the insured [facility] [address] [place] [address] [id number] DARCY LANGFORD Self - patient is the insured 2 MEDICAL (GENERAL) HISTORY Medical History History ICD Code hyperlipidemia hypertension Surgical History Surgery Date(Month/Year) colonoscopy 4 years Hospitalization History Reason Date(Month/Year) hypertension 1979
== END 2024-10-28 09:07 | disposition home or self-care (01) ==
PROVIDERS: PCP Internal Medicine; Visit Provider Urology
DX: N40.0 Benign prostatic hyperplasia without lower urinary tract symptoms (principal); R97.20 Elevated prostate specific antigen [PSA]
CPT/HCPCS: 99214

== ENCOUNTER 2024-12-23 09:05 | Outpatient (REF) | payer MEDICARE, SELFPAY ==
--- OUTSIDE RECORDS SUMMARY | 2024-12-23 09:19 | XMS_ITS | Patient Health Record ---
Author Organization [facility] Address [address] [place] [address] Care Team Providers Care Mid Level Business Analyst Name Role Phone INESSA HENDERSON Primary Care Provider [phone] Rajani Holman Unavailable [phone] ALLERGIES No Known Allergies RESULTS Component Value Reference Range Notes COMPREHENSIVE METABOLIC PANE L Reviewed date:01/26/2024 01:57:53 PM Interpretation: Performing Lab: Notes/Report: Note Original Ordering Provider: RAJANI HOLMAN PA-C [employer], [place] [address] Junior Financial Analyst - Meredith Sherwood MD GLUCOSE [phone] [...] Note Original Ordering Provider: RAJANI HOLMAN PA-C [employer], a member of [address] [address] Junior Financial Analyst - Meredith Sherwood MD CBC WITH AUTO [...] Interpretation: Performing Lab: Notes/Report: The Siemens Advia Pirqaur Chemiluminescent Immunoassay is used. Results obtained with [...] 1 CAPSULE ONCE DAILY for 90 Active Lisinopril 20 MG TAKE 1 TABLET ONCE D AILY for 90 Active Rosuvastatin Calcium 20 MG TAKE 1 TABLET ONCE DAILY for 90 Active IMMUNIZATIONS Vaccine Route Administration Date Status [...] (primary) hypertension (I10) Active confirmed Essential hypertension (58677873) Problem Gout, unspecified (M10.9) Active confirmed Gout (25698095) Problem Chronic kidney disease, stage 3 (moderate) (N18.3) Active confirmed Chronic kidney disease stage 3 (disorder) (483614202) Problem Benign prostatic hyperplasia without lower urinary tract symptoms (N40.0) Active confirmed Benign pros tatic hypertrophy without outflow obstruction (089641241) Problem Hyperlipidemia, unspecified hyperlipidemia type (E78.5) Active confirmed Hyperlipidaemia (41785943) Problem Vitamin D deficiency (E55.9) Active confirmed Vitamin D deficiency (85853869) Problem Accelerated hypertension (I10) Active confirmed Essential hypertension (11455311) Problem Chest wall pain (R07.89) Active confirmed Chest wall pain (708886983) Problem Diabetes mellitus screening (Z13.1) Active confirmed Diabetes m ellitus screening (939803290) Problem Chronic kidney disease, stage 3 unspecified (N18.30) Active confirmed Chronic kidney disease stage 3 (disorder) (819404346) Problem Prostate cancer screening (Z12.5) Active confirmed Screening for malignant neoplasm of prostate (705113411) Problem Screening for diabetes mellitus (Z13.1) Active confirmed Diabetes mellit us screening (536930740) Problem Stage 3a chronic kidney disease (CKD) (N18.31) Active confirmed 190002120 Problem Osteoporosis screening (Z13.820) Active confirmed Screening for osteoporosis (762315112) Problem Elevated lipids (E78.5) Active confirmed Elevated fastin g lipid profile (523858177882) Problem Screening for hypothyroidism (Z13.29) Active confirmed Congenital hypothyroidism screening test (517670840) VITAL SIGNS Heart Rate 60 /min 10/26/2024 Oximetry 97 % 10/26/2024 Blood pressure diastolic 78 mm Hg 10/26/2024 Height 69 in 10/26/2024 Blood pressure systolic 130 mm Hg 10/26/2024 Weight 191 lbs 10/26/2024 BMI 28.2 kg/m2 10/26/2024 Encounters Encounter Location Date Provider Diagnosis [address] 01/26/2024 Rajani Svrcek Annual physical exam Z00.00 ; Chronic kidney disease, stage 3 unspecified N18.30 ; Rib pain on left side R07.81 and Screening for lung cancer Z12.2 [address] 03/08/2024 Rajani Svrcek Essential (primary) hypertension I10 ; Hyperlipidemia, unspecified hyperlipidemia type E78.5 ; Stage 3a chronic kidney disease (CKD) N18.31 and Former smoker Z87.891 [address] 08/09/2024 Rajani Svrcek Essential (primary) hypertension I10 ; Hyperlipidemia, unspecified hyperlipidemia type E78.5 ; Stage 3a chronic kidney disease (CKD) N18.31 ; Former smoker Z87.891 and Benign prostatic hyperplasia without lower urinary tract symptoms N40.0 [address] 10/26/2024 Rajani Svrcek Stage 3a chronic kid geo disease (CKD) N18.31 ; Essential (primary) hypertension I10 ; Hyperlipidemia, unspecified hyperlipidemia type E78.5 and Benign prostatic hyperplasia without lower urinary tract symptoms N40.0 [facility] [address] [facility] [address] 11/18/2024 INESSA HENDERSON [facility] [address] [place] [address] 01/08/[address] [place] [address] 08/12/2024 INESSA HENDERSON ASSESSMENTS Encounter Date Diagnosis [...] log exercise and discussed fitness Apps like [employer] which can help keep log off calories [...] Dictation was accomplished with the use of [employer] voice recognition software, prone to medical misidentifications [...] log exercise and discussed fitness Apps like [employer] which can help keep log off calories [...] Dictation was accomplished with the use of [employer] voice recognition software, prone to medical misidentifications [...] Dictation was accomplished with the use of [employer] voice recognition software, prone to medical misidentifications [...] Dictation was accomplished with the use of [employer] voice recognition software, prone to medical misidentifications [...] Dictation was accomplished with the use of [employer] voice recognition software, prone to medical misidentifications [...] Dictation was accomplished with the use of [employer] voice recognition software, prone to medical misidentifications [...] Dictation was accomplished with the use of [employer] voice recognition software, prone to medical misidentifications [...] Dictation was accomplished with the use of [employer] voice recognition software, prone to medical misidentifications [...] Dictation was accomplished with the use of [employer] voice recognition software, prone to medical misidentifications [...] Dictation was accomplished with the use of [employer] voice recognition software, prone to medical misidentifications [...] Dictation was accomplished with the use of [employer] voice recognition software, prone to medical misidentifications [...] log exercise and discussed fitness Apps like [employer] which can help keep log off calories [...] Dictation was accomplished with the use of [employer] voice recognition software, prone to medical misidentifications [...] Dictation was accomplished with the use of [employer] voice recognition software, prone to medical misidentifications [...] Dictation was accomplished with the use of [employer] voice recognition software, prone to medical misidentifications [...] log exercise and discussed fitness Apps like [employer] which can help keep log off calories [...] Dictation was accomplished with the use of [employer] voice recognition software, prone to medical misidentifications [...] Dictation was accomplished with the use of [employer] voice recognition software, prone to medical misidentifications [...] Dictation was accomplished with the use of [employer] voice recognition software, prone to medical misidentifications [...] BLOOD COUNT) 06/01/2020 CBC (COMPLETE BLOOD COUNT) 02/01/2018 CBC (COMPLETE BLOOD COUNT) 06/09/2023 CBC (COMPLETE BLOOD COUNT) 09/23/2023 CBC (COMPLETE BLOOD COUNT) 10/09/2021 COMPREHENSIVE METABOLIC PANEL 01/26/2024 COMPREHENSIVE METABOLIC PANEL 03/08/2024 COMPREHENSIVE METABOLIC PANEL 09/23/2023 COMPREHENSIVE METABOLIC PANEL 06/09/2023 COMPREHENSIVE METABOLIC PANEL 02/01/2018 COMPREHENSIVE METABOLIC PANEL 10/09/2021 COMPREHENSIVE METABOLIC PANEL 06/01/2020 CRP, HIGH SENSITIVITY 02/01/2018 HEMOGLOBIN A1C 06/01/2020 HEMOGLOBIN A1C 02/01/2018 HEMOGLOBIN A1C 10/09/2021 LIPID PANEL 10/09/2021 LIPID PANEL 03/08/2024 LIPID PANEL 06/09/2023 LIPID PANEL 09/23/2023 LIPID PANEL 09/04/2020 LIPID PANEL 06/01/2020 LIPID PANEL 02/01/2018 PSA, FREE AND TOTAL 02/01/2018 T4, FREE 10/09/2021 TSH 10/09/2021 TSH 08/09/2024 TSH WITH REFLEX TO FT4 02/01/2018 URIC ACID 06/01/2020 URIC ACID 09/04/2020 URINALYSIS W/REFLEX CULTURE 10/09/2021 URINALYSIS, COMPLETE 06/01/2020 URINALYSIS, COMPLETE 02/01/2018 Lipid Panel 06/03/2018 LIPID PANEL, STANDARD 10/26/2024 LIPID PANEL, STANDARD 08/09/2024 LIPID PANEL, STANDARD 01/10/2022 COMPREHENSIVE METABOLIC PANEL 07/21/2022 COMPREHENSIVE METABOLIC PANEL 01/10/2022 COMPREHENSIVE METABOLIC PANEL 10/26/2024 COMPREHENSIVE METABOLIC PANEL 08/09/2024 URIC ACID 01/10/2022 CBC (INCLUDES DIFF/PLT) 01/10/2022 CBC (INCLUDES DIFF/PLT) 07/21/2022 CBC (INCLUDES DIFF/PLT) 08/09/2024 URINALYSIS, COMPLETE 01/10/2022 URINALYSIS, COMPLETE W/REFLEX TO CULTURE 07/21/2022 HEMOGLOBIN A1c 08/09/2024 PSA (FREE AND TOTAL) 08/09/2024 VITAMIN D,25-OH,TOTAL,IA 08/09/2024 COMPLETE URINALYSIS 06/09/2023 CT Low Dose Lung Screening 03/08/2024 Next Appt Details Provider Name:Rajani Holman, Octavia 02/23/2025 11:00:00 AM, [address] [place] [address], [phone], Insurance Providers Payer Name Payer Address Payer Phone Subscriber Number Group Number Insured Name Patient Relationship to Insured Coverage Start Date Coverage End Date Medicare Part B J14 [address] [place] [address] [id number] DARCY LANGFORD Self - patient is the insured [employer] [address] [place] [address] [phone] [id number] DARCY LANGFORD Self - patient is the insured [facility] [address] [place] [address] [id number] DARCY LANGFORD Self - patient is the insured MEDICAL (GENERAL) HISTORY Medical History History ICD Code hyperlipidemia hypertension Surgical History Surgery Date(Month/Year) colonoscopy 4 years Hospitalization History Reason Date(Month/Year) hypertension 1979
--- OUTSIDE RECORDS SUMMARY | 2024-12-23 09:19 | XMS_ITS ---
Author Organization [facility] Address [address] [place] [phone] Care Team Providers Care Nurse Liaison Name Role Phone INESSA CORNEJO Primary Care Provider REASON FOR VISIT CCM - colo, dexa MEDICATIONS Medication SIG (Take, Route, Fr equency, Duration) Notes Start Date End Date Status Lisinopril 20 MG 1 tablet Orally Once a day for 90 days Active Encounters Encounter Location Date Provider Diagnosis [facility] [address] [place] [phone] 11/18/2024 INESSA CORNEJO PLAN OF TREATMENT Medication Medication Name Sig Start Date Stop Date Notes Lisinopril 20 MG 1 tablet Orally Once a day for 90 days Next Appt Details Provider Name:Rajani Varma, 0 02/23/2025 11:00:00 AM, [address] [place] [address], [address], [address], Progress Notes * DARCY LANGFORDDOB:1955 (69 yo M)Acc No.[id number]:11/18/2024 Patient:??DARCY LANGFORD :1955?Age:69 Y?Sex:Uma mendoza Address:[address] [place] [address] * Refills?? Refill Lisinopril Tablet, 20 MG, Orally, 90 Tablet, 1 tablet, Once a day, 90 days, Refills=1 * * Date:??
--- OUTSIDE RECORDS SUMMARY | 2024-12-23 09:19 | XMS_ITS ---
Author Organization [facility] Address [address] [place] [address] Care Team Providers Care Auto Locator Name Role Phone CHANTAL ANIALUIS Primary Care Provider Rajani Varma Unavailable [phone] ALLERGIES No Known Allergies REASON FOR VISIT [...] Location Date Provider Diagnosis [address] [address] 10/26/2024 Rajani Vamra Stage 3a chronic kid geo disease (CKD) [...] Dictation was accomplished with the use of [employer] voice recognition software, prone to medical misidentifications [...] Dictation was accomplished with the use of [employer] voice recognition software, prone to medical misidentifications [...] Dictation was accomplished with the use of [employer] voice recognition software, prone to medical misidentifications [...] Provider Name:Rajani Varma, Octavia 02/23/2025 11:00:00 AM, [address] [place] [address], [phone], Progress Notes * AMARA LANGFORDZACKARYDOB:1955 (69 yo M)Acc No.[id number]:10/26/2024 Progress Notes Patient:??DARCY LANGFORD Provider:??Rajani Varma PA-C :1955?Age:69 Y?Sex:Uma le Date:10/26/2024 Address:[address] [place], [place] [id number] Pcp:INESSA HENDERSON Subjective: * Chief Complaints: * [...] Dictation was accomplished with the use of [employer] voice recognition software, prone to medical misidentifications [...] * Images: Billing Information: * Visit Code:?? 11213 Office Visit, Est Pt., Level 4. Modifiers: [...] Walking several times a week for exercise. [place] labs reviewed with patient. PSA level has [...]
--- OUTSIDE RECORDS SUMMARY | 2024-12-23 09:19 | XMS_ITS ---
Author Organization [email or web address] Address [address] [place] [address] Care Team Providers Care Car Ferrier Name Role Phone INESSA CORNEJO Primary Care Provider REASON FOR VISIT CCM Encounters Encounter Location Date Provider Diagnosis [facility] [address] [facility] [address] [place] [address] 08/12/2024 INESSA CORNEJO PLAN OF TREATMENT Next Appt Details Provider Name:Rajani Varma, 0 02/23/2025 11:00:00 AM, [address] , [address], [place], [address], Progress Notes * DARCY LANGFORDDOB:1955 (68 yo M)Acc No.[id number]:08/12/2024 Patient:??DARCY LANGFORD :1955?Age:68 Y?Sex:Uma mendoza Address:[address] [place] [address] * true * Date:??
[2024-12-23 11:14] LABS: Prostate Specific Antigen 2.07 ng/mL (<0.05-4.0)
== END 2024-12-23 09:06 | disposition home or self-care (01) ==
LOC: HO.HMGCLDS 09:05
PROVIDERS: PCP Internal Medicine; Visit Provider Urology
DX: N40.0 Benign prostatic hyperplasia without lower urinary tract symptoms (principal); Z12.5 Encounter for screening for malignant neoplasm of prostate
CPT/HCPCS: 36415; 84153

== ENCOUNTER 2025-01-19 13:17 | Outpatient (AMB) | payer MEDICARE, SELFPAY ==
--- NOTE | 2025-01-19 13:17 | MHC.OFFVIS ---
Intake Visit Reasons: follow up/PSA Intake Note: Patient is present for PSA F/U Urology Medication:FINASTERIDE,ALLOPURINOL Antibiotic Allergy:NONE Blood Thinner:NONE Preschool Teacher Assistant Required: No Allergies No Known Allergies Allergy (Verified 01/19/25 13:18) HPI Comments Details: Rosendo Glass is a very pleasant male. He is a patient of Dr. Henderson. He is seen for the following urologic conditions. - BPH - elevated PSA Telemedicine Evaluation 15 min Consultation [facility] [employer] [place] Video Follow-up PSA 2.1 - not sure how to explain primary care measurement 12m f/u Urinary Symptoms Review - Lower urinary tract symptoms managed with finasteride every other day. - History of stable PSA level at 1.6 - Factors potentially affecting PSA levels include recent sexual activity, bike riding, and coffee consumption Prostate/Bladder: Significant PSA drop with finasteride LAURA 2+ prostate Benign prostatic hyperplasia (BPH) was diagnosed years ago. Current symptoms include nocturia, weak flow, urinary frequency. Severity of the symptoms that is mild. Aggravating factors include alcohol, caffeine intake. Current medication(s) include finasteride. Recent labs included a PSA (prostate-specific antigen) November 2012 3.1, July 2014 3.2, January 2015 2.7, November 2015 4.4 free PSA 27%. December 2016 3.3, 07/17 3.1, 08/17 4.0, 08/18 4.6, 02/17 1.4 (on finasteride), 02/18 3.5, 03/21 4.5, 07/22 2.5, 09/23 1.6, 12/23 2.1 PFSH Medical History Renal sclerosis Hyperlipidemia HTN (hypertension) Elevated PSA Weak urinary stream BPH (benign prostatic hyperplasia) Surgical History History of surgery Social History Patient Tobacco Use Status: Former Tobacco user Review of Systems Const All systems reviewed & are unremarkable except as noted in HPI and below Reports no additional complaints Resp Reports no additional complaints GI Reports no additional complaints Reports as per HPI Musc Reports no additional complaints Physical Exam Telemedicine evaluation Appropriate responses Regular breathing rate and rhythm HEENT Head: Yes normal to inspection Ears: hearing grossly normal bilaterally Eyes General: appearance normal, both eyes and all related structures Neck Neck: Yes normal visual inspection Chest Chest palpation & inspection: normal inspection of the chest Resp Effort & Inspection: normal respiratory effort and able to speak in complete sentences Telehealth Telehealth Telehealth Platform: [employer] Location of provider rendering services: practice address Location of patient: address on file Patient Identification confirmed using: Name, : Yes Telehealth method: video Patient verbally consented to treatment: Yes Patient verbally consented to billing insurance company: Yes Patient informed of any privacy concerns related to visit: Yes Minutes spent on Phone/Video with Pt.: 15 Assessment & Plan Assessment & Plan (1) BPH (benign prostatic hyperplasia): Code(s): N40.0 - Benign prostatic hyperplasia without lower urinary tract symptoms Category: Medical (2) Elevated PSA: Code(s): R97.20 - Elevated prostate specific antigen [PSA] Category: Medical Plan Twelve month follow-up PSA Continue finasteride every other day Orders: Orders Prostate Specific Antigen 12 Months R97.20 - Elevated prostate specific antigen [PSA] Patient Instructions: This note is constructed using voice recognition software. While every effort has been made to ensure accuracy bottler errors may have been included. Imaging studies, laboratory and physical exam results were discussed and reviewed in detail. No major barriers to patient understanding were identified. An opportunity to ask questions regarding the treatment plan was provided. All questions were answered. The patient expressed understanding and agreement with the above treatment plan. The patient is aware they should contact our office by phone for worsening of their current condition or the appearance of new urologic symptoms. Compliance is encouraged with any medications and followup testing that is ordered. It is a privilege to participate in the urologic care of your patient. If you have any questions or concerns regarding treatment for the above conditions, or other urologic issues, please do not hesitate to contact me. The office telephone contact is [phone]. Sincerely, Dr Antwan Elmore MD, [facility] - Urology Compassionate Specialist Care for the Genitourinary System Coding Level of Care Code Tele Est Pt Level 3 (03980) Diagnoses BPH (benign prostatic hyperplasia) N40.0 Elevated PSA R97.20
--- OUTSIDE RECORDS SUMMARY | 2025-01-19 13:22 | XMS_ITS | Patient Health Record ---
Author Organization [facility] Address [address] [place] [address] Care Team Providers Care Backup Operator Name Role Phone INESSA HENDERSON Primary Care Provider Rajani Holman Unavailable [phone] Allergies No Known Allergies Results Component Value Reference Range Notes COMPREHENSIVE METABOLIC PANE L Reviewed date:01/26/2024 01:57:53 PM Interpretation: Performing Lab: Notes/Report: Note Original Ordering Provider: RAJANI HOLMAN PA-C [employer], [place] [address] Machine Maintenance Servicer - Meredith Sherwood MD GLUCOSE [phone] [...] Note Original Ordering Provider: RAJANI HOLMAN PA-C [employer] [address] Machine Maintenance Servicer - Meredith Sherwood MD PROSTATE SPECIFIC ANTIGEN JOSE CRANE Reviewed date:10/27/2024 04:36:19 PM Interpretation: Performing Lab: Notes/Report: The Siemens Advia Centaur Chemiluminescent Immunoassay is used. Results obtained with different assay methods or kits cannot be used interchangeably. Results cannot be interpreted as absolute evidence of the presence or absence of malignant disease. PSA 7.70 0.00-4.00 ng/mL HEMOGLOBIN A1C Reviewed date:10/27/2024 04:36:01 PM Interpretation: Performing Lab: Notes/Report: Hemoglobin A1C 5.5 <6.5 % Mean Bld Glu Estim. 111 COMPREHENSIVE METABOLIC PANE L Reviewed date:10/14/2024 10:32:08 [...] 3.2-5.0 g/dL Total Bilirubin 0.9 0.0-1.4 mg/dL VITAMIN D 25 HYDROXY Reviewed date:10/14/2024 10:31:27 AM Interpretation: Performing Lab: Notes/Report: Vit D, 25-Hydroxy 30.5 30.0-80.0 ng/mL LIPID PANEL WITH REFLEX TO D IRECT LDL Reviewed date:10/14/2024 10:32:30 AM Interpretation: Performing Lab: Notes/Report: Cholesterol 118 0-200 mg/dL Triglycerides 146 0-150 mg/dL HDL 37 >=40 mg/dL LDL Calculated 52 0-100 mg/dL VLDL Cholesterol Mao 29.2 Non HDL Chol. (LDL+VLDL) 81 <145 mg/dL Chol/HDL Ratio 3.2 0.0-4.4 CBC WITH AUTO DIFFERENTIAL Reviewed date:10/14/2024 10:13:37 [...] K/mcL Immature Granulocytes Absolute 0.03 0.00-0.03 K/mcL Reason For Referral No Information Medications Medication SIG (Take, Route, Frequency, Duration) Notes [...] 1 TABLET ONCE DAILY for 90 Active Immunizations Vaccine Route Administration Date Status Comme nts [...] 09/30/2019 Administered Tdap IM Intramuscular 06/03/2018 Administered Social History Tobacco Use: Social History Observation Description Date Details (start date - stop date) Current Smoker NA - NA Tobacco Use/Smoking Question Answer Notes Are you a current smoker Section Notes: Weekend cigars. No alcohol. No rec drug use. Weekend cigars. No alcohol. No rec drug use. Weekend cigars. No alcohol. No rec drug use. Weekend cigars. No alcohol. No rec drug use. Problems Problem Type SNOMED Code ICD Code Onset Dates Problem Status W/U Status Risk Notes Problem Essential hypertension (72531602) Essential (primary) hypertension (I10) Active confirmed Problem Gout (13664284) Gout, unspecifie d (M10.9) Active confirmed Problem Chronic kidney disease stage 3 (disorder) (651802966) Chronic kidney disease, stage 3 (moderate) (N18.3) Active confirmed Problem Benign prostatic hypertrophy without outflow obstruction (239691597) Benign prostatic hyperplasia without lower urinary tract symptoms (N40.0) Active confirmed Problem Hyperlipidaemia (89523294) Hyperlipidemia, unspecified hyperlipidemia type (E78.5) Active confirmed Problem Vitamin D deficiency (72754422) Vitamin D deficiency (E55.9) Active confirmed Problem Essential hypertension (27698163) Accelerated hypertension (I10) Active confirmed Problem Chest wall pain (433930542) Chest wall pain (R07.89) Active confirmed Problem Diabetes mellitus screening (375640031) Diabetes mellitus screening (Z13.1) Active confirmed Problem Chronic kidney disease stage 3 (disorder) (019590068) Chronic kidney disease, stage 3 unspecified (N18.30) Active confirmed Problem Screening for malignant neoplasm of prostate (944059106) Prostate cancer screening (Z12.5) Active confirmed Problem Diabetes mellitus screening (456219984) Screening for diabetes mellitus (Z13.1) Active confirmed Problem 033650325 Stage 3a chronic kidney disease (CKD) (N18.31) Active confirmed Problem Screening for osteoporosis (012361370) Osteoporosis screening (Z13.820) Active confirmed Problem Elevated fasting lipid profile (048664024413) Elevated lipids (E78.5) Active confirmed Problem Congenital hypothyroidism screening test (252579839) Screening for hypothyroidism (Z13.29) Active confirmed Vital Signs Heart Rate 60 /min 10/26/2024 Blood pressure diastolic 78 mm Hg 10/26/2024 Oximetry 97 % 10/26/2024 Height 69 in 10/26/2024 Blood pressure systolic 130 mm Hg 10/26/2024 Weight 191 lbs 10/26/2024 BMI 28.2 kg/m2 10/26/2024 Encounters Encounter Location Date Provider Diagnosis [facility] [address] 08/12/2024 [facility] [address] [place] [id number] 11/18/2024 [facility] [address] 01/18/2025 [facility] [address] 03/08/2024 Rajani Svrcek Essential (primary) hypertension I10 ; Hyperlipidemia, unspecified hyperlipidemia type E78.5 ; Stage 3a chronic kidney disease (CKD) N18.31 and Former smoker Z87.891 [address] 08/09/2024 Rajani Svrcek Essential (primary) hypertension I10 ; Hyperlipidemia, unspecified hyperlipidemia type E78.5 ; Stage 3a chronic kidney disease (CKD) N18.31 ; Former smoker Z87.891 and Benign prostatic hyperplasia without lower urinary tract symptoms N40.[address] 10/26/2024 Rajani Svrcek Stage 3a chronic kid geo disease (CKD) N18.31 ; Essential (primary) hypertension I10 ; Hyperlipidemia, unspecified hyperlipidemia type E78.5 and Benign prostatic hyperplasia without lower urinary tract symptoms N40.[address] [phone] 01/26/2024 Rajani Holman Annual physical exam Z00.00 ; Chronic kidney disease, stage 3 unspecified N18.30 ; Rib pain on left side R07.81 and Screening for lung cancer Z12.2 Assessments Encounter Date Diagnosis (ICD Code) Assessment Notes Treatment Notes Treatment Clinical Notes [...] log exercise and discussed fitness Apps like GetYou which can help keep log off calories [...] Dictation was accomplished with the use of [employer] voice recognition software, prone to medical misidentifications [...] log exercise and discussed fitness Apps like GetYou which can help keep log off calories [...] Dictation was accomplished with the use of [employer] voice recognition software, prone to medical misidentifications [...] Dictation was accomplished with the use of [employer] voice recognition software, prone to medical misidentifications [...] Dictation was accomplished with the use of [employer] voice recognition software, prone to medical misidentifications [...] Dictation was accomplished with the use of [employer] voice recognition software, prone to medical misidentifications [...] Dictation was accomplished with the use of [employer] voice recognition software, prone to medical misidentifications [...] Dictation was accomplished with the use of [employer] voice recognition software, prone to medical misidentifications [...] Dictation was accomplished with the use of [employer] voice recognition software, prone to medical misidentifications [...] Dictation was accomplished with the use of [employer] voice recognition software, prone to medical misidentifications [...] Dictation was accomplished with the use of [employer] voice recognition software, prone to medical misidentifications [...] Dictation was accomplished with the use of [employer] voice recognition software, prone to medical misidentifications [...] log exercise and discussed fitness Apps like GetYou which can help keep log off calories [...] Dictation was accomplished with the use of [employer] voice recognition software, prone to medical misidentifications [...] log exercise and discussed fitness Apps like GetYou which can help keep log off calories [...] Dictation was accomplished with the use of [employer] voice recognition software, prone to medical misidentifications [...] yearly. Case discussed with collaborating physician William Henedrson who reviewed the assessment and plan. Chart, medications, labs, vital signs reviewed. Dictation was accomplished with the use of [employer] voice recognition software, prone to medical misidentifications [...] Dictation was accomplished with the use of [employer] voice recognition software, prone to medical misidentifications [...] Dictation was accomplished with the use of [employer] voice recognition software, prone to medical misidentifications [...] Dictation was accomplished with the use of [employer] voice recognition software, prone to medical misidentifications and grammatical errors. This is unintentional and the practitioner does try to identify and correct these, but some could still be present. Please do not hesitate to contact practitioner for clarification. All questions answered to patients satisfaction. Patient verbalized understanding of diagnosis and treatments explained. To call sooner prior to next visit it any questions/concerns arise. Plan Of Treatment Pending Test Test Name Order Date Echocardiogram [...] COMPREHENSIVE METABOLIC PANEL 06/09/2023 COMPREHENSIVE METABOLIC PANEL 03/08/2024 COMPREHENSIVE METABOLIC PANEL 02/01/2018 COMPREHENSIVE METABOLIC PANEL 06/01/2020 COMPREHENSIVE METABOLIC PANEL 10/09/2021 CRP, HIGH SENSITIVITY 02/01/2018 HEMOGLOBIN A1C 06/01/2020 HEMOGLOBIN A1C 02/01/2018 HEMOGLOBIN A1C 10/09/2021 LIPID PANEL 10/09/2021 LIPID PANEL 09/04/2020 LIPID PANEL 02/01/2018 LIPID PANEL 06/01/2020 LIPID PANEL 03/08/2024 LIPID PANEL 06/09/2023 LIPID PANEL 09/23/2023 PSA, FREE AND TOTAL 02/01/2018 T4, FREE 10/09/2021 TSH 10/09/2021 TSH 08/09/2024 TSH WITH REFLEX TO FT4 02/01/2018 URIC ACID 06/01/2020 URIC ACID 09/04/2020 URINALYSIS W/REFLEX CULTURE 10/09/2021 URINALYSIS, COMPLETE 06/01/2020 URINALYSIS, COMPLETE 02/01/2018 Lipid Panel 06/03/2018 LIPID PANEL, STANDARD 08/09/2024 LIPID PANEL, STANDARD 10/26/2024 LIPID PANEL, STANDARD 01/10/2022 COMPREHENSIVE METABOLIC PANEL 07/21/2022 COMPREHENSIVE METABOLIC PANEL 08/09/2024 COMPREHENSIVE METABOLIC PANEL 10/26/2024 COMPREHENSIVE METABOLIC PANEL 01/10/2022 URIC ACID 01/10/2022 CBC (INCLUDES DIFF/PLT) 01/10/2022 CBC (INCLUDES DIFF/PLT) 08/09/2024 CBC (INCLUDES DIFF/PLT) 07/21/2022 URINALYSIS, COMPLETE 01/10/2022 URINALYSIS, COMPLETE W/REFLEX TO CULTURE 07/21/2022 HEMOGLOBIN A1c 08/09/2024 PSA (FREE AND TOTAL) 08/09/2024 VITAMIN D,25-OH,TOTAL,IA 08/09/2024 COMPLETE URINALYSIS 06/09/2023 CT Low Dose Lung Screening 03/08/2024 Next Appt Details Provider Name:Rajani Holman, 0 02/23/2025 11:00:00 AM, [address] [place] [address], [id number], Insurance Providers Payer Name Payer Address Payer Phone Subscriber Number Group Number Insured Name Patient Relationship to Insured Coverage Start Date Coverage End Date Medicare Part B J14 [address] [facility] [place] [phone] [id number] DARCY LANGFORD Self - patient is the insured [employer] [address] [place] [address] [phone] [id number] DARCY LANGFORD Self - patient is the insured [facility] [address] [place] [address] [id number] DARCY LANGFORD Self - patient is the insured 2 Medical (General) History Medical History History ICD Code hyperlipidemia hypertension Surgical History Surgery Date(Month/Year) colonoscopy 4 years Hospitalization History Reason Date(Month/Year) hypertension 1979
== END 2025-01-19 14:17 | disposition home or self-care (01) ==
LOC: HO.HUSH 13:17
PROVIDERS: PCP Internal Medicine; Visit Provider Urology
DX: N40.0 Benign prostatic hyperplasia without lower urinary tract symptoms (principal); R97.20 Elevated prostate specific antigen [PSA]
CPT/HCPCS: 99213

== ENCOUNTER → 2025-01-19 13:17 | Outpatient (BNVA) | payer MEDICARE, SELFPAY | PROVIDERS: PCP Internal Medicine; Visit Provider Urology | DX: Z13.89 Encounter for screening for other disorder (principal) ==